=== PATIENT | female | born 1940 | race Caucasian/White ===

== ENCOUNTER → 2016-11-03 | Outpatient (CLI) | payer BC ==
[~2016-11-03] MED LIST: ACET-1311 PO; ANT25 PO; ASPI81TA21 PO; BISA10SU3 PR; BND25X PO; CHOL1000 PO; CHOL100010 PO; CYCL0.052 OP; DOCU-94 PO; DONE1TAB11 PO; GLUCTAB7 PO; HYDR1OIN EXT; LEVO75TA25 PO; LEVO75TA5 PO; MECL1TAB42 PO; MOML PO; MULT-513 PO; ROSU5TAB PO; RXC5 PO; ZNTT/150 PO
== END | disposition home or self-care (01) ==
LOC: C.LABSPEC 17:36
PROVIDERS: ATTEND Internal Medicine
DX: R39.9 Unspecified symptoms and signs involving the genitourinary system (principal)

== ENCOUNTER → 2016-11-29 | Outpatient (CLI) | payer BC ==
[~2016-11-29] MED LIST changes: -BND25X PO; +DIPH25CA50 PO
[2016-11-29 13:46] LABS: ALT/SGPT 36 U/L (12-78); AST/SGOT 20 U/L (15-37); BLOOD UREA NITROGEN 19 mg/dl (7-18); CREATININE 0.89 mg/dl (0.60-1.20)
[2016-11-29 14:03] LABS: CHOLESTEROL/HDL RATIO 2.2
== END | disposition home or self-care (01) ==
LOC: C.LABBFT 09:22
PROVIDERS: ATTEND Psychiatry & Neurology Neurology
DX: E78.5 Hyperlipidemia, unspecified (principal); R41.3 Other amnesia; R39.9 Unspecified symptoms and signs involving the genitourinary system; R48.2 Apraxia

== ENCOUNTER → 2016-12-01 | Outpatient (CLI) | payer BC ==
[~2016-12-01] MED LIST changes: +GADAVIST IV PRN
--- NOTE | 2016-12-01 14:53 | DIAGNOSTIC IMAGING REPORT ---
MRI OF THE BRAIN WITHOUT AND WITH IV CONTRAST CLINICAL HISTORY: Memory loss. Gait disturbance. Urinary dysfunction. COMPARISON STUDY: MRI of the brain March 10, 2016. TECHNIQUE: Utilizing a 1.5 Kelly magnet and dedicated coil, multiplanar, multiecho imaging of the brain was performed pre and postcontrast administration. IV administration of 8.5 mL of Gadavist contrast was uneventful. FINDINGS: There are no areas of restricted diffusion. No acute intracranial hemorrhage, midline shift or mass effect is present. Ventricular system is stable. Basilar cisterns are patent. There are no extra-axial collections. Flow-voids for the major intracranial vessels are present. There are no intracranial masses or pathologic enhancement. Moderate atrophy is noted. Moderate white matter T2 hyperintensity suggest small vessel disease. The appearance of the brain is unchanged since MRI of March 10, 2016. Calvarial signal is maintained. Orbits and sinuses are unremarkable. IMPRESSION: 1. No acute intracranial findings. 2. No change in appearance of the brain since exam of March 10, 2016. 3. Moderate atrophy and small vessel disease. 4. No intracranial mass. Electronically signed by: Dewey Wagner M.D. 12/01/2016 2:51 PM Dictated Date/Time: 12/01/2016 2:44 PM
== END | disposition home or self-care (01) ==
LOC: C.MRI 13:24
PROVIDERS: ATTEND Psychiatry & Neurology Neurology
DX: R41.3 Other amnesia (principal); R48.2 Apraxia; R39.9 Unspecified symptoms and signs involving the genitourinary system

== ENCOUNTER → 2017-01-12 | Outpatient (CLI) | payer BC ==
[~2017-01-12] MED LIST changes: -GADAVIST IV PRN
[2017-01-12 19:16] LABS: URINE APPEARANCE CLEAR (CLEAR); URINE BILIRUBIN NEG (NEG); URINE COLOR YELLOW; URINE NITRITE NEG (NEG); URINE SPECIFIC GRAVITY 1.007 (1.000-1.030); UROBILINOGEN NEG (NEG)
[2017-01-12 19:23] LABS: MANUAL MICROSCOPIC REQUIRED? NO; REVIEW REQ? NO
== END | disposition home or self-care (01) ==
LOC: C.LABSPEC 17:25
PROVIDERS: ATTEND Physician Assistant Medical
DX: R39.9 Unspecified symptoms and signs involving the genitourinary system (principal)

== ENCOUNTER 2017-01-26 00:04 | Observation (INO) | payer BC ==
[~2017-01-26] VITALS: Ht 160 cm; Wt 83.1 kg
[~2017-01-26 00:04] MED LIST changes: -ACET-1311 PO; -BISA10SU3 PR; -CHOL1000 PO; -CYCL0.052 OP; -DIPH25CA50 PO; -DONE1TAB11 PO; -HYDR1OIN EXT; -LEVO75TA5 PO; -MECL1TAB42 PO; -MOML PO; -ROSU5TAB PO; -RXC5 PO
--- NOTE | 2017-01-26 00:12 | EMERGENCY ROOM VISIT NOTE ---
History Report prepared by Leland: Mark Tovar Under the Supervision of: Dr. Prasad Tobias D.O. First contact with patient: 00:03 Chief Complaint: FALL Stated Complaint: FALL History of Present Illness The patient is a 76 year old female who presents to the Emergency Room via EMS with complaints of a fall that occurred [employer]LECT[employer]UMENT [employer]. Per the patient, she has been having trouble with her left leg over the past couple of days. She states that she does not really know why or how she fell, but that her leg has been giving her issues. She did not lose consciousness, but she did hit her head. She takes Aspirin regularly. She denies any weakness. She has a past medical history of cataract surgeries. 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 Review of Systems See HPI for pertinent positives and negatives. A total of ten systems were reviewed and were otherwise negative. Past Medical & Surgical Medical Problems: (1) Ambulatory dysfunction (2) Chest pain (3) Dizziness (4) Esophageal Reflux (5) Long-Term (Current) Use Of Aspirin Family History Omitted secondary to age. Social History Smoking Status: Never Smoker Smokeless Tobacco Use: No Drug Use: none Occupation Status: retired Current/Historical Medications Scheduled Aspirin Enteric Coated (Ecotrin Or Generic), 81 MG PO DAILY Cholecalciferol (Vitamin D3), 1,000 INTER.UNIT PO DAILY Donepezil Hydrochloride (Donepezil Hcl), 10 MG PO DAILY Levothyroxine Sodium (Levothyroxine Sodium), 75 MCG PO DAILY Rosuvastatin Calcium (Crestor), 5 MG PO HS Scheduled PRN Meclizine Hcl (Meclizine Hcl), 25 MG PO TID PRN for Dizziness or Vertigo Allergies Coded Allergies: No Known Allergies (Unverified , 01/26/17) Physical Exam Vital Signs Date Time Temp Pulse Resp B/P (MAP) Pulse Ox O2 Delivery O2 Flow Rate FiO2 01/26/17 00:07 36.8 98 18 124/76 94 Room Air Physical Exam GENERAL: Awake, alert, well-appearing, in no distress HENT: Normocephalic, atraumatic. Oropharynx unremarkable. EYES: Normal conjunctiva. Sclera non-icteric. NECK: Supple. No nuchal rigidity. FROM. No JVD. RESPIRATORY: Clear to auscultation. CARDIAC: Regular rate, normal rhythm. Extremities warm and well perfused. Pulses equal. ABDOMEN: Soft, non-distended. No tenderness to palpation. No rebound or guarding. No masses. RECTAL: Deferred. MUSCULOSKELETAL: Chest examination reveals no tenderness. The back is symmetrical on inspection without obvious abnormality. There is no CVA tenderness to palpation. No joint edema. LOWER EXTREMITIES: Left lower extremity has an obvious ecchymosis at the left knee cap which is in different stages of healing. There is tenderness to the area. N/V distally. NEURO: Normal sensorium. No sensory or motor deficits noted. GCS 15. SKIN: No rash or jaundice noted. Medical Decision & Procedures ER Provider Diagnostic Interpretation: X ray results as stated below per my interpretation and radiologist interpretation. Other radiology results as stated below per my review and radiologist interpretation 3 VIEW LEFT KNEE: Soft tissue swelling present. Knee replacement present which is intact. No obvious fracture. Per my interpretation. CT HEAD: Compared to CT head 03/10/2016 No ICH, mass effect or edema. No skull fracture. CT C SPINE: No evidence of acute fracture or subluxation. Radiologist: Loureds Burch M.D. Laboratory Results Test 01/26/17 01:37 01/26/17 02:24 01/26/17 02:25 01/26/17 03:09 Bedside Glucose 118 mg/dl (70-90) Laboratory results reviewed by me ED Course 0003: The patient was evaluated in room B7. A complete history and physical exam was performed. 0130: I reevaluated the patient. Discussed results and discharge instructions: She verbalized understanding and agreement. The patient is ready for discharge. 0140: I was told by the patient's family that the patient has been having increased difficult walking and lives by herself. They would like her to stay to be evaluated further to be placed in a nursing facility. 0230: Upon reexamination, the patient was resting. I discussed the test results and treatment plan with her. The patient will be evaluated by Dr. John KIRBY , for further management. Medical Decision Differential diagnoses include but are not limited to; sprain, strain, contusion , fracture, intracranial hemorrhage, and concussion. Medication Reconciliation: I attest that I have personally reviewed the patient' s current medication list. Blood pressure screening: Patient was found to have normal blood pressure on screening and does not require follow-up. Patient re-eval at 1:15 AM. Patient has a GCS of 15. Patient's CAT scans are negative and x-ray as interpreted by me was negative for fracture. I discussed the findings with the patient at bedside. Spoke with family at bedside, they would like the patient to be admitted for her frequent falls impossibility of getting admitted to a senior care. I discussed the evaluation with the [facility] hospitalist for admission Consults Time Called: 224 Consulting Physician: Dr. John FU Returned Call: [phone] She will be evaluating the patient for further management. Impression Primary Impression: Closed head injury Additional Impression: Contusion of left knee Scribe Attestation The scribe's documentation has been prepared under my direction and personally reviewed by me in its entirety. I confirm that the note above accurately reflects all work, treatment, procedures, and medical decision making performed by me. Departure Information Dispostion Being Evaluated By Hospitalist Referrals No Doctor Assigned Forms HOME CARE DOCUMENTATION FORM, IMPORTANT VISIT INFORMATION Patient Instructions Bruises Contusions, ED Head Injury Closed, My [facility] Problem Qualifiers
[2017-01-26] MEDS ORDERED: CHOL1000 PO (00:24)
[2017-01-26] MEDS ORDERED: LEVO75TA5 PO (00:26)
[2017-01-26] MEDS ORDERED: MECL1TAB42 PO (00:27)
[2017-01-26] MEDS ORDERED: ROSU5TAB PO (00:28)
[2017-01-26] MEDS ORDERED: DONE1TAB11 PO (00:29)
[2017-01-26] MEDS ORDERED: MECLIZINE HCL 25 MG TAB PO PRN (03:15)
[2017-01-26] MEDS ORDERED: ONDANSETRON INJ 2 MG/ML 2 ML VIAL IV PRN (03:15)
[2017-01-26] MEDS ORDERED: ACETAMINOPHEN 325 MG TAB PO PRN (03:15)
[2017-01-26] MEDS ORDERED: POLYETHYLENE (MIRALAX) 17 GM PACK PO PRN (03:15)
[2017-01-26 03:25] LABS: BASO % 0.1 %; BASO ABS # 0.02 K/uL (0-0.2); COMPLETE YES; EOS % 0.1 %; HEMATOCRIT 47.4 % (37-47); IG% 0.3 %; LYMPH % 7.7 %; LYMPH ABS # 1.16 K/uL (1.2-3.4); MEAN CELL VOLUME 94.6 fL (80-100); MEAN CORPUSCULAR HEMOGLOBIN 30.9 pg (25-34); MEAN CORPUSCULAR HGB CONC 32.7 g/dl (32-36); MEAN PLATELET VOLUME 9.8 fL (7.4-10.4); MONO % 9.3 %; NEUT % 82.5 %; PLATELET COUNT 381 K/uL (130-400); RED BLOOD COUNT 5.01 M/uL (4.2-5.4); WHITE BLOOD COUNT 15.02 K/uL (4.8-10.8)
[2017-01-26 03:28] LABS: CALCIUM 8.9 mg/dl (8.5-10.1); POTASSIUM 4.2 mmol/L (3.5-5.1)
[2017-01-26 03:31] LABS: MANUAL MICROSCOPIC REQUIRED? NO; REVIEW REQ? YES; URINE APPEARANCE TURBID (CLEAR); URINE BILIRUBIN NEG (NEG); URINE COLOR DK YELLOW; URINE EPITHELIAL CELL AUTO >30 /lpf (0-5); URINE NITRITE NEG (NEG); URINE SPECIFIC GRAVITY 1.036 (1.000-1.030); UROBILINOGEN NEG (NEG)
[2017-01-26 03:33] LABS: CREATININE 1.2 mg/dl (0.60-1.20)
[2017-01-26 03:34] LABS: THYROID STIMULATING HORMONE 1.59 uIu/ml (0.300-4.500)
--- NOTE | 2017-01-26 03:47 | History and Physical ---
History & Physical Date & Time of Service: Jan 26, 2017 at 03:31 Chief Complaint: FALL Primary Care Physician: Yousif Arana M.D. History of Present Illness Source: patient, family, clinic records This is 76 yo f that is presenting to us after a mechanical fall at home this evening. She was walking with her walker when her "feet couldn't keep up" and she fell forward. Her wrist hit first then her knee and her forehead. She had no dizziness/ chest pain/ shortness of breath prior to the fall. This is her fourth fall in the past month and she states "it is because I shuffle and can't get my feet moving." All imaging done in ED was WNL however because of her frequent falls the family would like her admitted for further evaluation and possible placement. She has been evaluated for worsening memory and gait dysfunction by Dr Arana and Dr Nguyen. On her last visit with Dr Nguyen an MRI was done and did not reveal any significant findings. She was started on Donepezil as there was suspicion that the patient's symptoms such as staring and gait dysfunction could be from dementia. When we asked the patient about when the MRI was done she stated that it was 4-6 weeks prior( which would coincide with the MRI done in November). The daughter shook her head and said "that couldn't be true she hasn' t left the house at all." Daughter confirms a shuffling gait. Past Medical/Surgical History Hypothyroidism Dementia, mild Hyperlipidemia left TKA Family History Diabetes mellitus Heart disease Social History Smoking Status: Never Smoker Smokeless Tobacco Use: No Alcohol Use: none Drug Use: none Marital Status: Housing status: lives alone Occupational Status: retired Immunizations History of Influenza Vaccine: Yes History of Tetanus Vaccine?: Yes History of Pneumococcal: No History of Hepatitis B Vaccine: No Multi-Drug Resistant Organisms History of MDRO: No Allergies Coded Allergies: No Known Allergies (Unverified , 01/26/17) Home Medications Scheduled Aspirin Enteric Coated (Ecotrin Or Generic), 81 MG PO DAILY Cholecalciferol (Vitamin D3), 1,000 INTER.UNIT PO DAILY Donepezil Hydrochloride (Donepezil Hcl), 10 MG PO DAILY Levothyroxine Sodium (Levothyroxine Sodium), 75 MCG PO DAILY Rosuvastatin Calcium (Crestor), 5 MG PO HS Scheduled PRN Meclizine Hcl (Meclizine Hcl), 25 MG PO TID PRN for Dizziness or Vertigo Review of Systems Constitutional: No fever, No chills Eyes: No worsening of vision ENT: No hearing loss Respiratory: No cough, No sputum, No wheezing, No shortness of breath, No dyspnea on exertion, No dyspnea at rest Cardiovascular: No chest pain Abdomen: No pain, No nausea, No vomiting, No diarrhea, No constipation Musculoskeletal: + problem reported (right UE tremor), No joint pain, No muscle pain Genitourinary - Female: No dysuria, No hematuria Neurologic: + memory loss, + weakness, + balance problems, No numbness/tingling Psychiatric: No depression symptoms Endocrine: No fatigue Integumentary: No rash Physical Exam Vital Signs Date Time Temp Pulse Resp B/P (MAP) Pulse Ox O2 Delivery O2 Flow Rate FiO2 01/26/17 00:07 36.8 98 18 124/76 94 Room Air General Appearance: no apparent distress, + pertinent finding (masked facies, does stare off during the interview) Head: normocephalic, atraumatic Eyes: normal inspection ENT: normal ENT inspection Neck: supple Respiratory/Chest: normal breath sounds, no respiratory distress, no accessory muscle use Cardiovascular: regular rate, rhythm, no murmur Abdomen/GI: normal bowel sounds, non tender, soft Back: normal inspection Extremities/Musculoskelatal: normal inspection, + pertinent finding (a right UE resting tremor is noted , bilat cogwheel rigidity R>L) 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, alert, oriented x 3, + pertinent finding (coorindation intact however finger to nose test is slow miving) Skin: normal color, warm/dry, no rash Diagnostics Laboratory Results Results Past 24 Hours Test 01/26/17 01:37 01/26/17 02:24 01/26/17 02:25 01/26/17 02:55 Range/Units Bedside Glucose 118 70-90 mg/dl White Blood Count 15.02 4.8-10.8 K/uL Red Blood Count 5.01 4.2-5.4 M/uL Hemoglobin 15.5 12.0-16.0 g/dL Hematocrit 47.4 37-47 % Mean Corpuscular Volume 94.6 80-100 fL Mean Corpuscular Hemoglobin 30.9 25-34 pg Mean Corpuscular Hemoglobin Concent 32.7 32-36 g/dl Platelet Count 381 130-400 K/uL Mean Platelet Volume 9.8 7.4-10.4 fL Neutrophils (%) (Auto) 82.5 % Lymphocytes (%) (Auto) 7.7 % Monocytes (%) (Auto) 9.3 % Eosinophils (%) (Auto) 0.1 % Basophils (%) (Auto) 0.1 % Neutrophils # (Auto) 12.38 1.4-6.5 K/uL Lymphocytes # (Auto) 1.16 1.2-3.4 K/uL Monocytes # (Auto) 1.39 0.11-0.59 K/uL Eosinophils # (Auto) 0.02 0-0.5 K/uL Basophils # (Auto) 0.02 0-0.2 K/uL RDW Standard Deviation 48.1 36.4-46.3 fL RDW Coefficient of Variation 13.9 11.5-14.5 % Immature Granulocyte % (Auto) 0.3 % Immature Granulocyte # (Auto) 0.05 0.00-0.02 K/uL Test 01/26/17 03:09 Range/Units Microbiology Results 01/26/17 Urine Culture, Received Pending Diagnostic Radiology CT head no acute bleed Impression Assessment and Plan This is a 76 yo f that is presenting to us with ambulatory dysfunction and requiring further evaluation Ambulatory dysfunction; parkinsons? (Phys exam concerning for this), Myasthenia gravis? Peripheral neuropathy? - med surg admission - TSH - Vit B 12 and folate - ACHr Ab to r/o MG - if WNL consider a trial of Sinemet in the outpt setting - PT/OT Hypothyroidism - continue current dose of levothyroxine - TSH as above Hyperlipidemia - continue rosuvastatin Mild Dementia - continue donepezil DVT Prophylaxis Heparin DNR Level of Care Med/Surg Resuscitation Status DO NOT RESUSCITATE VTE Prophylaxis VTE Risk Assessment Done? Y/N: Yes Risk Level: Moderate Given or contraindicated: Unfractionated heparin SQ Social Service Consult None Apply Note Total Time: Critical Care 30 - 74 minutes Additional Copies To Yousif Arana M.D. Assessment and Plan Attending Addendum: I have physically seen and examined this patient, have directed their medical care, have supervised the medical residents activities, and agree with the H&P as noted above, with the following changes: NONE
[2017-01-26] MEDS ORDERED: IV FLUIDS COMPLETED PRN (04:00)
[2017-01-26 04:57] VITALS: BP 102/67; PULSE 82; TEMP 36.5; O2SAT 94; Ht 160 cm; Wt 83.1 kg
[2017-01-26] MEDS: LEVOTHYROXINE 75 MCG TAB PO SCH (05:28)
--- NOTE | 2017-01-26 06:55 | DIAGNOSTIC IMAGING REPORT ---
LEFT KNEE 3 VIEWS CLINICAL HISTORY: Left knee pain status post fall. COMPARISON: Left knee radiographs October 25, 2012. FINDINGS: Alignment of the total left knee arthroplasty is anatomic. There is no periprosthetic fracture or joint effusion. There is prepatellar soft tissue swelling. IMPRESSION: 1. Status post total left knee arthroplasty. Hardware intact with no periprosthetic fracture or joint effusion. 2. Moderate prepatellar soft tissue swelling. Electronically signed by: Dewey Wagner M.D. 01/26/2017 6:54 AM Dictated Date/Time: 01/26/2017 6:53 AM
--- NOTE | 2017-01-26 07:05 | DIAGNOSTIC IMAGING REPORT ---
CT OF THE CERVICAL SPINE WITHOUT CONTRAST CLINICAL HISTORY: Neck pain following fall. COMPARISON STUDY: No previous studies for comparison. TECHNIQUE: Helical axial images of the cervical spine were obtained without IV contrast. Sagittal and coronal reconstructions were viewed. FINDINGS: There is straightening of the normal cervical lordosis. Craniocervical junction is intact. There is no acute fracture. There is no prevertebral edema. Moderate multilevel degenerative disc disease and severe multilevel facet arthrosis is present. IMPRESSION: 1. No acute cervical spine fracture or subluxation. 2. Moderate multilevel degenerative disc disease and severe multilevel facet arthrosis. Electronically signed by: Dewey Wagner M.D. 01/26/2017 7:03 AM Dictated Date/Time: 01/26/2017 7:01 AM
--- NOTE | 2017-01-26 07:10 | DIAGNOSTIC IMAGING REPORT ---
CT SCAN OF THE BRAIN WITHOUT IV CONTRAST CLINICAL HISTORY: Headache. Fall. COMPARISON STUDY: CT of the brain dated 03/10/2016. TECHNIQUE: Unenhanced axial CT scan of the brain is performed from the vertex to the skull base. FINDINGS: Brain parenchyma: There are age-related involutional changes noting moderate patchy subcortical and periventricular microangiopathic change. There is no hemorrhage, mass effect, or evidence of acute territorial ischemia by CT criteria. Yoo-white matter is preserved. No extra-axial fluid collection is seen. Ventricles, sulci, cisterns: Prominent secondary to involutional change. Intracranial vasculature: There is mild atherosclerotic calcification of the cavernous carotid arteries. Calvarium: The skeletal structures are osteopenic. No depressed calvarial fracture is seen. Sinuses and mastoids: The visualized paranasal sinuses are clear. The mastoid air cells are well pneumatized. Orbits: The bony orbits are grossly intact. There are bilateral ocular lens implants. IMPRESSION: There is no hemorrhage, mass effect, or evidence of acute territorial ischemia by CT criteria. Electronically signed by: Ovidio Elizalde M.D. 01/26/2017 7:09 AM Dictated Date/Time: 01/26/2017 7:07 AM
[2017-01-26 07:21] LABS: PROTHROMBIN TIME (PATIENT) 10.4 SECONDS (9.0-12.0)
[2017-01-26 07:35] VITALS: BP 101/66; PULSE 85; TEMP 36.7; O2SAT 96
[2017-01-26] MEDS: ASPIRIN 81 MG ECTAB PO SCH (07:53)
[2017-01-26] MEDS: CHOLECALCIFEROL 1000 INTER.UNIT TAB PO SCH (07:53)
[2017-01-26] MEDS: DONEPEZIL HCL 5 MG TAB PO SCH (07:53)
[2017-01-26] MEDS: HEPARIN SOD 5000 UNIT/0.5 ML CARP SQ SCH ×2 (07:57→21:24)
[2017-01-26] MEDS ORDERED: ARTIFICIAL TEARS OP SOLN OP PRN ×2 (13:30)
--- NOTE | 2017-01-26 13:47 | Hospitalist Progress Note ---
Hospitalist Progress Note Date of Service Jan 26, 2017. Subjective Pt evaluation today including: conversation w/ patient, physical exam, chart review, lab review, review of studies, review of inpatient medication list Patient seen and evaluated. Was admitted overnight for frequent falls. She denies pain at this time. Only complaint is of dry eyes. States she takes prescription drops at home. Cannot find on med rec or in outpatient records Will try to talk with family but until then will use artificial tears. Dr. Geronimo's outpatient note reviewed - question of Subcortical gait and cognitive dysfunction vs Lewy Body Dementia...MRI with senescent changes no acute findings in November -- Recommended against Sinemet as risk may outweigh benefits Patient does report a progressive difficulty ambulating but denies a drastic change. States her L side has always been weaker than her R. No focal deficits appreciated. Constitutional: No fever, No chills Eyes: + problem reported (dry eyes) ENT: No nasal symptoms, No sore throat, No trouble swallowing Respiratory: No shortness of breath Cardiovascular: No chest pain, No palpitations Abdomen: No pain, No nausea, No vomiting, No diarrhea, No constipation Musculoskeletal: No swelling Female : No dysuria Neurologic: + memory loss Objective Vital Signs Date Time Temp Pulse Resp B/P (MAP) Pulse Ox O2 Delivery O2 Flow Rate FiO2 01/26/17 08:00 Room Air 01/26/17 07:35 36.7 85 18 101/66 (78) 96 Room Air 01/26/17 04:57 36.5 82 16 102/67 94 Room Air 01/26/17 04:13 36.8 85 16 115/54 94 01/26/17 04:04 85 16 115/54 94 Room Air 01/26/17 00:07 36.8 98 18 124/76 94 Room Air Physical Exam General Appearance: no apparent distress, + pertinent finding (mask-like face) Eyes: sclerae normal ENT: hearing grossly normal Neck: supple, no JVD, trachea midline Respiratory/Chest: lungs clear, normal breath sounds, no respiratory distress, no accessory muscle use Cardiovascular: regular rate, rhythm, no gallop, no murmur Abdomen: normal bowel sounds, non tender, soft Extremities: no pedal edema, no calf tenderness, + pertinent finding ( ecchymosis of L knee) Neurologic/Psychiatric: no motor/sensory deficits, alert, oriented x 3, + pertinent finding (could not appreciate cogwheeling on examination) Skin: normal color, warm/dry Laboratory Results Last 24 Hours Test 01/26/17 02:24 01/26/17 02:25 01/26/17 02:55 01/26/17 05:17 Bedside Glucose 118 mg/dl White Blood Count 15.02 K/uL Red Blood Count 5.01 M/uL Hemoglobin 15.5 g/dL Hematocrit 47.4 % Mean Corpuscular Volume 94.6 fL Mean Corpuscular Hemoglobin 30.9 pg Mean Corpuscular Hemoglobin Concent 32.7 g/dl Platelet Count 381 K/uL Mean Platelet Volume 9.8 fL Neutrophils (%) (Auto) 82.5 % Lymphocytes (%) (Auto) 7.7 % Monocytes (%) (Auto) 9.3 % Eosinophils (%) (Auto) 0.1 % Basophils (%) (Auto) 0.1 % Neutrophils # (Auto) 12.38 K/uL Lymphocytes # (Auto) 1.16 K/uL Monocytes # (Auto) 1.39 K/uL Eosinophils # (Auto) 0.02 K/uL Basophils # (Auto) 0.02 K/uL RDW Standard Deviation 48.1 fL RDW Coefficient of Variation 13.9 % Immature Granulocyte % (Auto) 0.3 % Immature Granulocyte # (Auto) 0.05 K/uL Urine Color DK YELLOW Urine Appearance TURBID Urine pH 5.0 Urine Specific [place] 1.036 Urine Protein TRACE Urine Glucose (UA) NEG Urine Ketones TRACE Urine Occult Blood NEG Urine Nitrite NEG Urine Bilirubin NEG Urine Urobilinogen NEG Urine Leukocyte Esterase TRACE Urine WBC (Auto) 1-5 /hpf Urine RBC (Auto) 0-4 /hpf Urine Hyaline Casts (Auto) 10-30 /lpf Urine Epithelial Cells (Auto) >30 /lpf Urine Bacteria (Auto) NEG Urine Renal Epithelial Cells /lpf Urine Crystals CALCIUM OXALATE Urine Pathogenic Casts /lpf Sodium Level 143 mmol/L Potassium Level 4.2 mmol/L Chloride Level 108 mmol/L Carbon Dioxide Level 27 mmol/L Anion Gap 8.0 mmol/L Blood Urea Nitrogen 25 mg/dl Creatinine 1.20 mg/dl Est Creatinine Clear Calc Drug Dose 39.6 ml/min Estimated GFR () 50.1 Estimated GFR (Non- 43.3 BUN/Creatinine Ratio 21.0 Random Glucose 127 mg/dl Calcium Level 8.9 mg/dl Total Bilirubin 0.6 mg/dl Direct Bilirubin 0.1 mg/dl Aspartate Amino Transf (AST/SGOT) 37 U/L Alanine Aminotransferase (ALT/SGPT) 36 U/L Alkaline Phosphatase 92 U/L Total Protein 7.7 gm/dl Albumin 3.8 gm/dl Globulin 3.9 gm/dl Albumin/Globulin Ratio 1.0 Thyroid Stimulating Hormone (TSH) 1.590 uIu/ml Vitamin B12 Level 363 pg/mL Folate 17.36 ng/mL Test 01/26/17 06:23 01/26/17 07:46 Prothrombin Time 10.4 SECONDS Prothromb Time International Ratio 1.0 Bedside Glucose 126 mg/dl Assessment and Plan This is a 76 yo F that is presenting with ambulatory dysfunction and requiring further evaluation Ambulatory Dysfunction: - Follows with Dr Geronimo - question of Lewy Body Dementia vs Subcortical Gait & Cognitive Dysfunction -- Had outpatient MRI in November revealing only atrophy and small vessel disease -- Per [employer] - would avoid Sinement as risks/side effects may outweight benefits - TSH, B12, and folate - WNL - Acetylcholine testing - R/O MG pending - UCx pending - R/O sources of infection however patient reporting this has been a slow progression instead of a sudden change in ambulation status - PT/OT evaluations Hypothyroidism: Compensated - Synthroid 75 mcg daily Hyperlipidemia: - Rosuvastatin 5 mg HS Dementia: - Donepezil 10 mg daily DVT Prophylaxis: Heparin 5000 units SC Q12H Code Status: DO NOT RESUSCITATE Disposition: Awaiting PT/OT evaluations Continued [facility] stay due to: ambulation difficulties Discharge planning: uncertain
[2017-01-26 14:55] VITALS: BP 100/66; PULSE 83; TEMP 37; O2SAT 93
[2017-01-26] MEDS ORDERED: NURSING VERBAL MED ORDER ONE (20:00)
[2017-01-26 20:14] VITALS: BP 117/75; PULSE 88; TEMP 36.6; O2SAT 94
[2017-01-26] MEDS ORDERED: ROSUVASTATIN CALCIUM 10 MG TAB PO SCH (21:00)
[2017-01-27] MEDS ORDERED: CYCLOSPORINE SCH
[2017-01-27 00:12] VITALS: BP 90/57; PULSE 84; TEMP 36.6; O2SAT 95
[2017-01-27] MEDS: LEVOTHYROXINE 75 MCG TAB PO SCH (05:51)
[2017-01-27 06:53] LABS: HEMATOCRIT 43.3 % (37-47); MEAN CELL VOLUME 95.8 fL (80-100); MEAN CORPUSCULAR HEMOGLOBIN 32.1 pg (25-34); MEAN CORPUSCULAR HGB CONC 33.5 g/dl (32-36); PLATELET COUNT 305 K/uL (130-400); RED BLOOD COUNT 4.52 M/uL (4.2-5.4); WHITE BLOOD COUNT 10.27 K/uL (4.8-10.8)
[2017-01-27 07:27] LABS: BUN/CREATININE RATIO 19.1 (10-20); CALCIUM 8.6 mg/dl (8.5-10.1); CREATININE 0.79 mg/dl (0.60-1.20); POTASSIUM 3.8 mmol/L (3.5-5.1)
[2017-01-27] MEDS: ASPIRIN 81 MG ECTAB PO SCH (07:47)
[2017-01-27] MEDS: DONEPEZIL HCL 5 MG TAB PO SCH (07:47)
[2017-01-27] MEDS: CHOLECALCIFEROL 1000 INTER.UNIT TAB PO SCH (07:48)
[2017-01-27] MEDS: HEPARIN SOD 5000 UNIT/0.5 ML CARP SQ SCH (07:52)
[2017-01-27 08:03] VITALS: BP 113/67; PULSE 75; TEMP 36.4; O2SAT 95
[2017-01-27] MEDS ORDERED: [UNRECOGNIZED DRUG - OTHER] OPB SCH (09:00)
--- NOTE | 2017-01-27 10:15 | Hospitalist Progress Note ---
Hospitalist Progress Note Date of Service Jan 27, 2017. Subjective Pt evaluation today including: conversation w/ patient, physical exam, chart review, lab review, review of studies, review of inpatient medication list Patient seen and evaluated. No acute events overnight. She is alert and oriented x 3. Has had limited ability to walk and will require placement. Notes overnight revealed some episodes of urinary incontinence. She verbalizes no new complaints today. Constitutional: No fever, No chills Eyes: No worsening of vision ENT: No nasal symptoms, No sore throat Respiratory: No cough, No shortness of breath Cardiovascular: No chest pain Abdomen: No pain, No nausea, No vomiting, No diarrhea, No constipation Musculoskeletal: No swelling, No calf pain Female : + incontinence (overnight), No dysuria Medications Current Inpatient Medications Medications (Trade) Dose Ordered Sig/Merary Route Start Time Stop Time Status Last Admin Dose Admin Acetaminophen (Tylenol Tab) 650 mg Q4H PRN PO 01/26/17 03:15 02/25/17 03:14 Polyethylene (Miralax Powder Packet) 17 gm DAILY PRN PO 01/26/17 03:15 02/25/17 03:14 Ondansetron HCl (Zofran Inj) 4 mg Q6H PRN IV 01/26/17 03:15 02/25/17 03:14 Heparin Sodium (Porcine) (Heparin Sq 5000 Unit/0.5ml) 5,000 unit Q12H SQ 01/26/17 09:00 02/25/17 08:59 01/27/17 07:52 5,000 UNIT Aspirin (Ecotrin Tab) 81 mg DAILY PO 01/26/17 09:00 02/25/17 08:59 01/27/17 07:47 81 MG Cholecalciferol (Vitamin D Tab) 1,000 inter.unit DAILY PO 01/26/17 09:00 02/25/17 08:59 01/27/17 07:48 1,000 INTER.UNIT Donepezil HCl (Aricept Tab) 10 mg DAILY PO 01/26/17 09:00 02/25/17 08:59 01/27/17 07:47 10 MG Levothyroxine Sodium (Synthroid Tab) 75 mcg DAILYBB PO 01/26/17 06:30 02/25/17 06:59 01/27/17 05:51 75 MCG Meclizine HCl (Antivert Tab) 25 mg TID PRN PO 01/26/17 03:15 02/25/17 03:14 Rosuvastatin Calcium (Crestor Tab) 5 mg HS PO 01/26/17 21:00 02/25/17 20:59 01/26/17 21:17 5 MG Miscellaneous (Iv Fluids Completed) 1 ea PRN PRN N/A 01/26/17 04:00 01/26/18 03:59 Artificial Tears (Artificial Tears) 2 drops Q2H PRN OP 01/26/17 13:30 02/25/17 13:29 Cyclosporine (Restasis) 1 drops BID OPB 01/27/17 09:00 02/26/17 08:59 01/27/17 08:18 1 DROPS Objective Vital Signs Date Time Temp Pulse Resp B/P (MAP) Pulse Ox O2 Delivery O2 Flow Rate FiO2 01/27/17 08:03 36.4 75 16 113/67 (82) 95 01/27/17 00:12 36.6 84 20 90/57 (68) 95 Room Air 01/27/17 00:05 Room Air 01/26/17 20:14 36.6 88 20 117/75 (89) 94 Room Air 01/26/17 20:05 Room Air 01/26/17 16:13 Room Air 01/26/17 14:55 37.0 83 20 100/66 (77) 93 Room Air Physical Exam General Appearance: WD/WN, no apparent distress, + pertinent finding (mask- like face) Eyes: sclerae normal ENT: pharynx normal Neck: supple, no JVD, trachea midline Respiratory/Chest: lungs clear, normal breath sounds, no respiratory distress, no accessory muscle use Cardiovascular: regular rate, rhythm, no gallop, no murmur Abdomen: normal bowel sounds, non tender, soft Extremities: no pedal edema, no calf tenderness, + pertinent finding (mildly contractured R foot) Neurologic/Psychiatric: alert, oriented x 3, + pertinent finding (mild cogwheeling bilat upper extremities) Skin: normal color, warm/dry Laboratory Results Last 24 Hours Test 01/27/17 06:15 White Blood Count 10.27 K/uL Red Blood Count 4.52 M/uL Hemoglobin 14.5 g/dL Hematocrit 43.3 % Mean Corpuscular Volume 95.8 fL Mean Corpuscular Hemoglobin 32.1 pg Mean Corpuscular Hemoglobin Concent 33.5 g/dl RDW Standard Deviation 49.6 fL RDW Coefficient of Variation 14.1 % Platelet Count 305 K/uL Mean Platelet Volume 10.0 fL Sodium Level 140 mmol/L Potassium Level 3.8 mmol/L Chloride Level 106 mmol/L Carbon Dioxide Level 26 mmol/L Anion Gap 8.0 mmol/L Blood Urea Nitrogen 15 mg/dl Creatinine 0.79 mg/dl Est Creatinine Clear Calc Drug Dose 59.9 ml/min Estimated GFR () 83.1 Estimated GFR (Non- 71.7 BUN/Creatinine Ratio 19.1 Random Glucose 99 mg/dl Calcium Level 8.6 mg/dl Assessment and Plan This is a 76 yo F that is presenting with ambulatory dysfunction and requiring further evaluation Ambulatory Dysfunction: Parkinsons? - Follows with Dr Geronimo - question of Lewy Body Dementia vs Subcortical Gait & Cognitive Dysfunction -- Had outpatient MRI in November revealing only atrophy and small vessel disease -- Per Allscripts - would avoid Sinement as risks/side effects may outweight benefits - TSH, B12, and folate - WNL - Acetylcholine testing - R/O MG pending - UCx pending - R/O sources of infection however patient reporting this has been a slow progression instead of a sudden change in ambulation status - suspicion for infection low - PT/OT evaluations Hypothyroidism: Compensated - Synthroid 75 mcg daily Hyperlipidemia: - Rosuvastatin 5 mg HS Dementia: - Donepezil 10 mg daily DVT Prophylaxis: Heparin 5000 units SC Q12H Code Status: DO NOT RESUSCITATE Disposition: Awaiting PT/OT evaluations - Referral placed for [facility] Continued [facility] stay due to: ambulation difficulties Discharge planning: [facility] facility
[2017-01-27] MEDS ORDERED: CYCL0.052 OP (12:50)
--- NOTE | 2017-01-27 12:57 | Discharge Instructions ---
Discharge Instructions Date of Service Jan 27, 2017. Admission Reason for Admission: Ambulatory Dysfunction Discharge Discharge Diagnosis / Problem: Ambulatory Dysfunction Discharge Goals Goal(s): Decrease discomfort, Improve function, Increase independence Activity Recommendations Activity Level: Assistance Required Therapies: Physical Therapy, Occupational Therapy . Additional Information Patient informed of condition: Yes Advance Directives: Yes DNR: Yes Level of Care: Skilled Communicable Disease: No Prognosis: Stable Instructions / Follow-Up Instructions / Follow-Up Ambulatory Dysfunction: Parkinsons? - Presented with mild resting tremor, shuffling gait, bradykinesia, mask-like face, mild cogwheeling of bilateral upper extremities - Follows with Dr Geronimo - question of Lewy Body Dementia vs Subcortical Gait & Cognitive Dysfunction -- Had outpatient MRI in November revealing only atrophy and small vessel disease -- Per Allscripts - would avoid Sinement as risks/side effects may outweigh benefits -- Recommend routine outpatient follow-up with neurology if necessary - TSH, B12, and folate - WNL - Acetylcholine testing - R/O Myastenia Gravis pending - UCx unremarkable - no source of infection to explain ambulatory dysfunction present - in addition patient reports this has been a progressive issue - PT/OT evaluations - patient is with lower extremity weakness and deficits with sitting and cannot ambulate safely Hypothyroidism: Compensated - Synthroid 75 mcg daily Hyperlipidemia: - Rosuvastatin 5 mg HS Mild Dementia: - Donepezil 10 mg daily Code Status: DO NOT RESUSCITATE Current Hospital Diet Patient's current hospital diet: AHA Diet (Heart Healthy), Low Sodium Diet (2gm Na) Discharge Diet Recommended Diet: AHA Diet (Heart Healthy), Low Sodium Diet (2gm Na) Pending Studies Studies pending at discharge: no Laboratory Results Lipid Panel Test 11/29/16 09:25 Range/Units Triglycerides Level 91 0-150 mg/dl Cholesterol Level 148 0-200 mg/dl HDL Cholesterol 67 mg/dl Cholesterol/HDL Ratio 2.2 LDL Cholesterol, Calculated 63 mg/dl Medical Emergencies . Who to Call and When: Medical Emergencies: If at any time you feel your situation is an emergency, please call 911 immediately. . Non-Emergent Contact Non-Emergency issues call your: Primary Care Provider Call Non-Emergent contact if: you have a fever, your pain is concerning you, you have any medication questions . . "Provider Documentation" section prepared by Lady Nunes. . Core Measure Problem Core Measures: None
--- NOTE | 2017-01-27 14:03 | Discharge Summary ---
Discharge Summary Date of Service Jan 27, 2017. Discharge Summary Admission Date: Jan 26, 2017 at 03:14 Discharge Date: Jan 27, 2017 Discharge Disposition: senior care facility ([facility]) Principal Diagnosis: Ambulatory Dysfunction Problems/Secondary Diagnoses: 1. Mild Dementia 2. Hypothyroidism 3. Hyperlipidemia 4. S/P L TKA Immunizations: Have You Had Influenza Vaccine: Yes History of Tetanus Vaccine?: Yes History of Pneumococcal: No History of Hepatitis B Vaccine: No Procedures: 1. CT SCAN OF THE BRAIN WITHOUT IV CONTRAST FINDINGS: Brain parenchyma: There are age-related involutional changes noting moderate patchy subcortical and periventricular microangiopathic change. There is no hemorrhage, mass effect, or evidence of acute territorial ischemia by CT criteria. Yoo-white matter is preserved. No extra-axial fluid collection is seen. Ventricles, sulci, cisterns: Prominent secondary to involutional change. Intracranial vasculature: There is mild atherosclerotic calcification of the cavernous carotid arteries. Calvarium: The skeletal structures are osteopenic. No depressed calvarial fracture is seen. Sinuses and mastoids: The visualized paranasal sinuses are clear. The mastoid air cells are well pneumatized. Orbits: The bony orbits are grossly intact. There are bilateral ocular lens implants. IMPRESSION: There is no hemorrhage, mass effect, or evidence of acute territorial ischemia by CT criteria. 2. CT OF THE CERVICAL SPINE WITHOUT CONTRAST FINDINGS: There is straightening of the normal cervical lordosis. Craniocervical junction is intact. There is no acute fracture. There is no prevertebral edema. Moderate multilevel degenerative disc disease and severe multilevel facet arthrosis is present. IMPRESSION: 1. No acute cervical spine fracture or subluxation. 2. Moderate multilevel degenerative disc disease and severe multilevel facet arthrosis. 3. LEFT KNEE 3 VIEWS FINDINGS: Alignment of the total left knee arthroplasty is anatomic. There is no periprosthetic fracture or joint effusion. There is prepatellar soft tissue swelling. IMPRESSION: 1. Status post total left knee arthroplasty. Hardware intact with no periprosthetic fracture or joint effusion. 2. Moderate prepatellar soft tissue swelling. Consultations: 1. PT/OT Medication Reconciliation Continued Medications: Aspirin Enteric Coated (Ecotrin Or Generic) 81 Mg Tab 81 MG PO DAILY, TAB Cholecalciferol (Vitamin D3) 1,000 Unit Tab 1000 INTER.UNIT PO DAILY for 90 Days, TAB 3 Refills Cyclosporine (Ophth) (Restasis) 0.05 % Emu 1 DROPS OP BID for 30 Days, #60 VIAL 3 Refills Donepezil Hydrochloride (Donepezil Hcl) 5 Mg Tab 10 MG PO DAILY for 90 Days, #180 TAB 3 Refills Levothyroxine Sodium (Levothyroxine Sodium) 75 Mcg Tab 75 MCG PO DAILY for 90 Days, #90 TAB 3 Refills Meclizine Hcl (Meclizine Hcl) 25 Mg Tab 25 MG PO TID PRN for Dizziness or Vertigo for 10 Days, #30 TAB Rosuvastatin Calcium (Crestor) 5 Mg Tab 5 MG PO HS, TAB Discharge Exam REVIEW OF SYSTEM: Constitutional: No fever, No chills Eyes: No worsening of vision ENT: No nasal symptoms, No sore throat Respiratory: No cough, No shortness of breath Cardiovascular: No chest pain Abdomen: No pain, No nausea, No vomiting, No diarrhea, No constipation Musculoskeletal: No swelling, No calf pain Female : + incontinence (overnight), No dysuria PHYSICAL EXAMINATION: General Appearance: WD/WN, no apparent distress, + pertinent finding (mask- like face) Eyes: sclerae normal ENT: pharynx normal Neck: supple, no JVD, trachea midline Respiratory/Chest: lungs clear, normal breath sounds, no respiratory distress, no accessory muscle use Cardiovascular: regular rate, rhythm, no gallop, no murmur Abdomen: normal bowel sounds, non tender, soft Extremities: no pedal edema, no calf tenderness, + pertinent finding (mildly contractured R foot) Neurologic/Psychiatric: alert, oriented x 3, + pertinent finding (mild cogwheeling bilat upper extremities) Skin: normal color, warm/dry Hospital Course ADMISSION: This is 76 yo f that is presenting to us after a mechanical fall at home this evening. She was walking with her walker when her "feet couldn't keep up" and she fell forward. Her wrist hit first then her knee and her forehead. She had no dizziness/ chest pain/ shortness of breath prior to the fall. This is her fourth fall in the past month and she states "it is because I shuffle and can't get my feet moving." All imaging done in ED was WNL however because of her frequent falls the family would like her admitted for further evaluation and possible placement. She has been evaluated for worsening memory and gait dysfunction by Dr Arana and Dr Nguyen. On her last visit with Dr Nguyen an MRI was done and did not reveal any significant findings. She was started on Donepezil as there was suspicion that the patient's symptoms such as staring and gait dysfunction could be from dementia. When we asked the patient about when the MRI was done she stated that it was 4-6 weeks prior( which would coincide with the MRI done in November). The daughter shook her head and said "that couldn't be true she hasn' t left the house at all." Daughter confirms a shuffling gait. HOSPITAL COURSE: Ms. Sylvester was admitted for ambulatory dysfunction with multiple mechanical falls prior to admission. She reports a progressive shuffling gait and denies lightheadedness/dizziness, SOB, palpitations, or CP prior to these falls. Imaging was unremarkable for acute injury after this most recent fall. She has been seen by Dr. Geronimo as an outpatient with outpatient imaging performed, including MRI in November. MRI was unremarkable for specific findings except for age-related atrophy and small vessel disease. Question of probable Parkinsons as patient presents with mild resting tremor, bradykinesia, shuffling gait, mild upper extremity cogwheeling, and mask-like face. Per review of Allscripts, Neurology recommends no Sinemet as the risk/adverse effects may far outweigh the benefits of implementation. No overt infection appreciated to explain presentation. TSH, B12, and folate obtained and unremarkable. She was continued on all home medications as previously prescribed. She is optimal for D/C to [facility] for rehabilitation and further recommendations pending performance there. Total Time Spent: Greater than 30 minutes This includes examination of the patient, discharge planning, medication reconciliation, and communication with other providers. Discharge Instructions Please refer to the electronic Patient Visit Report (Discharge Instructions) for additional information. Additional Copies To Yousif Arana M.D.
[2017-01-27 14:31] VITALS: BP 113/67; PULSE 75; TEMP 36.4; O2SAT 95
[2017-01-27 16:16] VITALS: BP 114/69; PULSE 84; TEMP 36.6; O2SAT 93
[2017-02-02 20:38] LABS: ACETYLCHOLINE RECEP MODULATING 2; ACETYLCHOLINE RECEPT BLOCKING <15 % inhibit (<15); RECEPTOR BINDING AB <0.30 nmol/L (<=0.30)
[2017-04-13] MEDS ORDERED: DIPH25CA50 PO (09:20)
== END 2017-01-27 16:45 ==
LOC: EDBD 00:04 → C.EDB 00:05 → C.MED 03:14 → ENRESERV 04:05
PROVIDERS: ADMIT Hospitalist; ATTEND Internal Medicine
DX: R26.9 Unspecified abnormalities of gait and mobility (principal); S80.02XA Contusion of left knee, initial encounter; S09.90XA Unspecified injury of head, initial encounter; W19.XXXA Unspecified fall, initial encounter; F03.90 Unspecified dementia, unspecified severity, without behavioral disturbance, psychotic disturbance, mood disturbance, and anxiety; E03.9 Hypothyroidism, unspecified; E78.5 Hyperlipidemia, unspecified; K21.9 Gastro-esophageal reflux disease without esophagitis; Z96.652 Presence of left artificial knee joint; Z66 Do not resuscitate; Z79.82 Long term (current) use of aspirin; Z79.899 Other long term (current) drug therapy

== ENCOUNTER 2017-04-10 18:22 | Inpatient (IN) | payer BC, OTHER ==
[~2017-04-10] VITALS: Ht 160 cm; Wt 85.0 kg
[~2017-04-10 18:22] MED LIST changes: -ANT25 PO; +CHOL1000 PO; -CHOL100010 PO; +CYCL0.052 OP; -DOCU-94 PO; +DONE1TAB11 PO; -GLUCTAB7 PO; -LEVO75TA25 PO; +LEVO75TA5 PO; +MECL1TAB42 PO; -MULT-513 PO; +ROSU5TAB PO; -ZNTT/150 PO
[2017-04-10 20:00] VITALS: BP 118/61; PULSE 66; TEMP 36.7; O2SAT 94; Ht 160 cm; Wt 85.0 kg
[2017-04-10] MEDS ORDERED: ACET-1311 PO (20:43)
[2017-04-10] MEDS ORDERED: ACETAMINOPHEN 325 MG TAB PO PRN (20:45)
[2017-04-10] MEDS ORDERED: BISA10SU3 PR (20:45)
[2017-04-10] MEDS ORDERED: ONDANSETRON INJ 2 MG/ML 2 ML VIAL IV PRN (20:45)
[2017-04-10] MEDS ORDERED: MoRPHine SULFATE 4 MG/ML 1 ML CARP\\VIAL IV PRN (20:45)
[2017-04-10] MEDS ORDERED: MOML PO (20:46)
[2017-04-10 21:10] LABS: HEMATOCRIT 44.8 % (37-47); MEAN CELL VOLUME 94.3 fL (80-100); MEAN CORPUSCULAR HEMOGLOBIN 31.2 pg (25-34); MEAN PLATELET VOLUME 9.5 fL (7.4-10.4); PLATELET COUNT 292 K/uL (130-400); RED BLOOD COUNT 4.75 M/uL (4.2-5.4); WHITE BLOOD COUNT 9.82 K/uL (4.8-10.8)
--- NOTE | 2017-04-10 21:14 | DIAGNOSTIC IMAGING REPORT ---
CHEST ONE VIEW PORTABLE CLINICAL HISTORY: Preoperative chest COMPARISON STUDY: 03/10/2016 FINDINGS: The cardiac and mediastinal contours are normal. There is no evidence of focal pulmonary consolidation. There is no evidence of failure. No pleural effusions are visualized.[ IMPRESSION: No active disease in the chest. Electronically signed by: Jayesh Patel M.D. 04/10/2017 9:13 PM Dictated Date/Time: 04/10/2017 9:12 PM
--- NOTE | 2017-04-10 21:23 | History and Physical ---
History & Physical Date & Time of Service: Apr 10, 2017 ~ 20:30 Chief Complaint: Right Trimalleolar Fracture Primary Care Physician: Dr. Lopez History of Present Illness 76 year old female who was transferred from [place] ED for evaluation of a right trimalleolar fracture. Patient is currently at [facility]. She reports that she was trying to get out of her wheelchair by herself when she tripped over the leg. She reports immediate right ankle pain. She was evaluated at [place] ED and was found to have a displaced right trimalleolar fracture. It was reduced in the ED. Case was discussed with Dr. Greer who recommended transfer to [facility] under the medicine service. Patient reports she has been feeling well recently. She denies chest pain and shortness of breath. No lightheadedness, dizziness, diaphoresis, or syncope. She reports occasional mild nausea but denies abdominal pain, vomiting, or diarrhea. No urinary symptoms. At the time of my exam, patient is resting in bed no acute distress. Past Medical/Surgical History Medical Problems: (1) Dementia Status: Chronic (2) Hypothyroidism Status: Chronic (3) Parkinson disease Status: Chronic Surgical Problems: (1) Status post total knee replacement, left Status: Chronic Family History Diabetes mellitus Heart disease Social History Smoking Status: Never Smoker Alcohol Use: none Multi-Drug Resistant Organisms History of MDRO: No Allergies Coded Allergies: No Known Allergies (Unverified , 01/26/17) Home Medications Scheduled Aspirin Enteric Coated (Ecotrin Or Generic), 81 MG PO DAILY Cholecalciferol (Vitamin D3), 1,000 INTER.UNIT PO DAILY Cyclosporine (Ophth) (Restasis), 1 DROPS OP BID Donepezil Hydrochloride (Donepezil Hcl), 10 MG PO DAILY Levothyroxine Sodium (Levothyroxine Sodium), 75 MCG PO DAILY Rosuvastatin Calcium (Crestor), 5 MG PO HS Scheduled PRN Acetaminophen (Tylenol), 325 MG PO Q6H PRN for Pain Bisacodyl (Dulcolax), 1 SUPP FL 4th AM if no BM PRN for Constipation Magnesium Hydroxide (Milk Of Magnesia), 30 ML PO 3rd PM if no BM PRN for Constipation Meclizine Hcl (Meclizine Hcl), 25 MG PO TID PRN for Dizziness or Vertigo Review of Systems ROS per HPI, all other systems reviewed and negative Physical Exam Vital Signs Date Time Temp Pulse Resp B/P (MAP) Pulse Ox O2 Delivery O2 Flow Rate FiO2 04/10/17 20:00 36.7 66 12 118/61 General Appearance: no apparent distress Head: normocephalic Eyes: normal inspection ENT: hearing grossly normal Neck: supple, no JVD Respiratory/Chest: lungs clear, normal breath sounds, no respiratory distress Cardiovascular: regular rate, rhythm, no edema, normal peripheral pulses Abdomen/GI: normal bowel sounds, non tender, soft Extremities/Musculoskelatal: + pertinent finding (right ankle wrapped, mild RLE edema noted, CSM checks intact) Neurologic/Psych: no motor/sensory deficits, alert, normal mood/affect, oriented x 3, + pertinent finding (forgetful, poor insight) Skin: normal color, warm/dry Diagnostics Laboratory Results Results Past 24 Hours Test 04/10/17 20:45 Range/Units Impression Assessment and Plan RIGHT TRIMALLEOLAR FRACTURE - admit to med/surg - ortho consult - likely to OR tomorrow for repair - mechanical fall - will check pre op EKG, CXR, and labs - if without significant abnormalities, patient can proceed to the OR as an acceptable risk - had echo 02/2016 - no valvular disease, preserved EF, grade I diastolic dysfunction DEMENTIA - continue Aricept PARKINSON'S HLD - continue statin DVT PROPHYLAXIS - SCDs due to possible surgical procedure tomorrow CODE STATUS - Patient is a DNR as per living will copy placed on chart. DISPO - In my clinical judgment this beneficiary meets acute admission criteria, established by [facility], that includes being hospitalized through two midnights. Attending addendum: S/P mechanical fall with right Trimalleolar fracture Complains of right foot pain but denies any other symptoms No CP,palpitation,SOB on usual day6 to day activities O/E No apparent distress Chest-clear to auscultate bilaterally Heart-regular,no murmur appreciated Abdomen-benign,no masses,bowel sound present Extremities-right ankle is bandaged Left-no edema Labs and Imaging studies so far is negative CXR is OK,awaiting EKG and had echo 02/2016 - no valvular disease, preserved EF, grade I diastolic dysfunction No Contraindication to proposed surgery other labs . Agree with the assessment and plan. DR Anuradha Collado VTE Prophylaxis VTE Risk Assessment Done? Y/N: Yes Risk Level: Moderate
[2017-04-10 21:28] LABS: BUN/CREATININE RATIO 30.4 (10-20); CALCIUM 9.2 mg/dl (8.5-10.1); CREATININE 0.57 mg/dl (0.60-1.20); POTASSIUM 3.8 mmol/L (3.5-5.1)
[2017-04-10] MEDS: ROSUVASTATIN CALCIUM 10 MG TAB PO SCH (21:31)
[2017-04-10] MEDS: HYDROCODONE/ACETAMOPHEN 5/325MG TAB PO PRN (21:36)
[2017-04-10 23:00] VITALS: BP 105/64; PULSE 75; TEMP 36.6; O2SAT 91
[2017-04-11] VITALS (8 sets, daily range): BP systolic 115–139; BP diastolic 49–80; PULSE 70–103; TEMP 36.4–37.4; O2SAT 92–97
[2017-04-11] MEDS: HYDROCODONE/ACETAMOPHEN 5/325MG TAB PO PRN ×2 (03:40→13:12)
[2017-04-11] MEDS: LEVOTHYROXINE 75 MCG TAB PO SCH (05:22)
[2017-04-11 06:25] LABS: HEMATOCRIT 41.1 % (37-47); MEAN CELL VOLUME 94.5 fL (80-100); MEAN CORPUSCULAR HEMOGLOBIN 32.2 pg (25-34); MEAN CORPUSCULAR HGB CONC 34.1 g/dl (32-36); MEAN PLATELET VOLUME 9.6 fL (7.4-10.4); PLATELET COUNT 301 K/uL (130-400); RED BLOOD COUNT 4.35 M/uL (4.2-5.4); WHITE BLOOD COUNT 9.05 K/uL (4.8-10.8)
[2017-04-11 06:37] LABS: PROTHROMBIN TIME (PATIENT) 10.3 SECONDS (9.0-12.0)
[2017-04-11 06:53] LABS: BUN/CREATININE RATIO 34.1 (10-20); CALCIUM 8.8 mg/dl (8.5-10.1); CREATININE 0.56 mg/dl (0.60-1.20); POTASSIUM 3.8 mmol/L (3.5-5.1)
--- NOTE | 2017-04-11 08:34 | CONSULTATION REPORT ---
DATE OF CONSULTATION: 04/11/2017 REASON FOR CONSULT: Ankle fracture, right ankle. HISTORY OF PRESENT ILLNESS: The patient is a 76-year-old white female who states that last evening, she had gotten up to ambulate and ended up catching her right foot and ankle in between her table and chair and ended up twisting the ankle, causing severe pain in the ankle. She was unable to ambulate and her son brought her to the [facility]. She was seen by the staff. X-rays were taken and it was found that she had a trimalleolar ankle fracture of the right ankle. There were no orthopedic services available there and the patient was then sent to [facility], being accepted by Dr. Greer. The patient was seen here at [facility] and was admitted by [facility] service and we have been consulted to take care of her right ankle fracture. PAST MEDICAL HISTORY: Dementia, hypothyroidism, and Parkinson's disease. PAST SURGICAL HISTORY: Left total knee arthroplasty performed by Dr. Osborne in 2012. FAMILY AND SOCIAL HISTORY: As per admitting history and physical. ALLERGIES: NKDA. MEDICATIONS: Aspirin 81 mg p.o. daily, vitamin D 3000 international units p.o. daily, Restasis 1 drop OP b.i.d., donepezil 10 mg p.o. daily, levothyroxine 75 mcg p.o. daily, Crestor 5 mg p.o. at bedtime, acetaminophen 325 mg p.o. q. 6 hours p.r.n., Dulcolax one suppository AL q a.m. p.r.n. constipation, milk of magnesia 30 mL p.o. p.m. if no BM p.r.n. for constipation, and meclizine 25 mg p.o. t.i.d. p.r.n. for dizziness or vertigo. REVIEW OF SYSTEMS: As per admitting history and physical. PHYSICAL EXAMINATION: VITAL SIGNS: Most recent vital signs show a temperature 36.6, pulse 75, respirations 16, BP 105/64, and pulse ox 91% on room air. GENERAL: The patient is a pleasant, well-developed and well-nourished white female, who is alert and oriented to person and place. She is in no acute distress, pleasant and cooperative. EXTREMITIES: Focusing our exam on her right lower extremity, she has a very short posterior splint on the right foot and ankle. Toes are pink and warm and upon removing the Kai bandage, it is noted that the very short posterior splint is pressing into the patient's skin where she has some swelling from the fracture. There are no areas that I can assess that have skin breakdown. At that point, I removed the splint and all of her skin medially, laterally and over the heel appears benign, although she does have a reddened area over the area where the splint was pressing in onto her flush. She has no pain up the extremity to the knee. Knee is nontender on palpation as well as hip is essentially benign with range of motion and is nontender. She denies pain in the left lower extremity, but has a well-healed scar from previous left TKA. Upper extremities are essentially within normal limits and have good range of motion and are nontender at the shoulders, elbows and wrist. There are no gross motor or sensory deficits seen at this time. She denies neck pain on palpation and has good range of motion and denies thoracic or low back pain. X-rays reviewed with Dr. Rojas shows right ankle fracture that will need to be repaired. PLAN: Plan for ORIF of right ankle today by Dr. Rojas. OLIVER
[2017-04-11] MEDS: CHOLECALCIFEROL 1000 INTER.UNIT TAB PO SCH (09:00)
[2017-04-11] MEDS: DONEPEZIL HCL 5 MG TAB PO SCH (09:37)
--- NOTE | 2017-04-11 09:48 | Progress Note ---
Medicine Progress Note Date & Time of Visit: Apr 11, 2017 at 09:32. (Stephany Russell, P.A.-C.) Subjective Patient seen and examined. Resting comfortably in bed. States that she experienced 9/10 pain R ankle pain overnight that decreased to 5 /10 with pain medication. A&Ox4 this morning, denies lightheadedness, CP, SOB, nausea/vomiting, calf pain or weakness in extremities. Discussed plan for ORIF of R ankle today. (Stephany Russell, P.A.-C.) Objective Last 8 Hrs Date Time Temp Pulse Resp B/P (MAP) Pulse Ox O2 Delivery O2 Flow Rate FiO2 04/11/17 07:45 92 Room Air 04/11/17 07:45 36.8 70 16 116/60 (78) 92 Room Air Physical Exam: General Appearance: WD/WN, no apparent distress Head: normocephalic, atraumatic Eyes: normal inspection, PERRL, EOMI ENT: hearing grossly normal, pharynx normal Neck: supple, no JVD, no adenopathy Respiratory/Chest: lungs clear to auscultation. No wheezes, rales or rhonci. No respiratory distress or accessory muscle use Cardiovascular: regular rate, rhythm, no murmur, normal peripheral pulses Abdomen/GI: normal bowel sounds, soft, non-tender to palpation Extremities/Musculoskelatal: Normal inspection. No calf tenderness or pedal edema. R ankle is wrapped with new dressing by ortho. Clean and dry. Cap refill of toes intact. No skin breakdown. Neurologic/Psych: alert, normal mood/affect, oriented x 3 Skin: normal color, warm/dry Laboratory Results: Last 24 Hours Test 04/10/17 21:03 04/11/17 05:53 White Blood Count 9.82 K/uL 9.05 K/uL Red Blood Count 4.75 M/uL 4.35 M/uL Hemoglobin 14.8 g/dL 14.0 g/dL Hematocrit 44.8 % 41.1 % Mean Corpuscular Volume 94.3 fL 94.5 fL Mean Corpuscular Hemoglobin 31.2 pg 32.2 pg Mean Corpuscular Hemoglobin Concent 33.0 g/dl 34.1 g/dl RDW Standard Deviation 45.4 fL 46.3 fL RDW Coefficient of Variation 13.2 % 13.3 % Platelet Count 292 K/uL 301 K/uL Mean Platelet Volume 9.5 fL 9.6 fL Sodium Level 142 mmol/L 140 mmol/L Potassium Level 3.8 mmol/L 3.8 mmol/L Chloride Level 108 mmol/L 106 mmol/L Carbon Dioxide Level 28 mmol/L 28 mmol/L Anion Gap 6.0 mmol/L 6.0 mmol/L Blood Urea Nitrogen 17 mg/dl 19 mg/dl Creatinine 0.57 mg/dl 0.56 mg/dl Est Creatinine Clear Calc Drug Dose 84.0 ml/min 85.5 ml/min Estimated GFR () 102.9 103.5 Estimated GFR (Non- 88.8 89.3 BUN/Creatinine Ratio 30.4 34.1 Random Glucose 130 mg/dl 109 mg/dl Calcium Level 9.2 mg/dl 8.8 mg/dl Prothrombin Time 10.3 SECONDS Prothromb Time International Ratio 1.0 Activated Partial Thromboplast Time 27.1 SECONDS Partial Thromboplastin Ratio 1.0 Diagnostic Imaging: CXR: IMPRESSION: No active disease in the chest. ECG: Normal sinus rhythm (Stephany Russell, P.A.-C.) Assessment & Plan This is a 76yo F with a PMH of dementia, Parkinsom's, hyperlipidemia, hypothyroidism who presents after a mechanical fall and was found to have a R trimalleolar fracture. Right Trimalleolar Fracture: -S/p mechanical fall -Ortho on board- scheduled for a R ankle ORIF today with Dr. Rojas -Pre-op labwork, ECG and CXR all wnl. Patient is cleared to proceed to OR as an acceptable risk -Had echo 02/2016 - no valvular disease, preserved EF, grade I diastolic dysfunction -Pain is well controlled on current regimen Dementia: -Continue Aricept Hypothyroidism: -Continue Synthroid Parkinson's: -Stable, per patient HLD: - Continue statin DVT Ppx: SCDs due to possible surgical procedure Code status: Patient is a DNR as per living will copy placed on chart Dispo: STEPH to help with discharge placement. Resident of [facility]. Current Inpatient Medications: Current Inpatient Medications Medications (Trade) Dose Ordered Sig/Merary Route Start Time Stop Time Status Last Admin Dose Admin Acetaminophen (Tylenol Tab) 650 mg Q4H PRN PO 04/10/17 20:45 05/10/17 20:44 04/11/17 00:17 650 MG Ondansetron HCl (Zofran Inj) 4 mg Q6H PRN IV 04/10/17 20:45 05/10/17 20:44 Acetaminophen/ Hydrocodone Bitart (Bath 5/325 Tab) 1 tab Q6H PRN PO 04/10/17 20:45 04/24/17 20:44 04/11/17 03:40 1 TAB Morphine Sulfate (MoRPHine SULFATE INJ) 4 mg Q3H PRN IV 04/10/17 20:45 04/24/17 20:44 04/11/17 02:33 4 MG Cholecalciferol (Vitamin D Tab) 1,000 inter.unit DAILY PO 04/11/17 09:00 05/11/17 08:59 Donepezil HCl (Aricept Tab) 10 mg DAILY PO 04/11/17 09:00 05/11/17 08:59 Levothyroxine Sodium (Synthroid Tab) 75 mcg DAILYBB PO 04/11/17 06:00 05/11/17 05:59 04/11/17 05:22 75 MCG Rosuvastatin Calcium (Crestor Tab) 5 mg HS PO 04/10/17 21:00 05/10/17 20:59 04/10/17 21:31 5 MG (Stephany Russell, P.A.-C.) ADDENDUM: Saw the patient today in room 355 She's doing okay, states she was getting up from a wheelchair and got caught in the wheelchair and hurt her R ankle No significant risk factors for procedure; plan is for ORIF continue current pain regimen. (Sonia Ac, DO)
--- NOTE | 2017-04-11 11:03 | History & Physical Bridge Note ---
H&P Re-Evaluation Bridge Note: I have examined the patient, reviewed the History & Physical and in the interval since the performance of the History & Physical I have noted the following changes of clinical significance: No changes noted
[2017-04-11] MEDS ORDERED: CEFAZOLIN IV 2,000 MG/60 ML D5W IV ONE (14:31)
[2017-04-11] MEDS ORDERED: NURSING DECISION MEDICATION ORDER SCH (14:45)
[2017-04-11] MEDS ORDERED: PROPOFOL IV EMULSION 10 MG/ML 20 ML VIAL IV ONE (15:15)
[2017-04-11] MEDS ORDERED: MIDAZOLAM HCL 1 MG/ML 2ML VIAL ONE (15:15)
[2017-04-11] MEDS ORDERED: BUPIVACAINE 0.5 % 5 MG/1 ML PF 10ML VIAL ONE ×2 (15:18→15:22)
[2017-04-11] MEDS ORDERED: ATROPINE SULFATE 0.1 MG/ML 5ML SYR IV PRN (16:30)
[2017-04-11] MEDS ORDERED: PHENYLEPHRINE 100MCG/ML 5ML SYR IV PRN (16:30)
[2017-04-11] MEDS ORDERED: HYDROmorphone INJ 2 MG/ML SYR/VIAL IV PRN (16:30)
[2017-04-11] MEDS ORDERED: EpHEDrine SULFATE INJ 50 MG/ML AMP IV PRN (16:30)
[2017-04-11] MEDS ORDERED: ONDANSETRON INJ 2 MG/ML 2 ML VIAL IV PRN (16:30)
--- NOTE | 2017-04-11 18:01 | DIAGNOSTIC IMAGING REPORT ---
RIGHT ANKLE 2 VIEWS CLINICAL HISTORY: ORIF RT Right TECHNIQUE: Image intensifier COMPARISON STUDY: None FINDINGS: Anatomic alignment post bimalleolar open reduction internal fixation. IMPRESSION: Image intensifier utilized for open reduction internal fixation of the right ankle. The above report was generated using voice recognition software. It may contain grammatical, syntax or spelling errors. Electronically signed by: Castro Alva M.D. 04/11/2017 6:00 PM Dictated Date/Time: 04/11/2017 5:59 PM
[2017-04-11] MEDS ORDERED: BISACODYL 10 MG SUPP PR PRN (18:15)
[2017-04-11] MEDS ORDERED: HYDROCODONE/ACETAMOPHEN 5/325MG TAB PO PRN (18:15)
[2017-04-11] MEDS ORDERED: MAGNESIUM HYDROXIDE SUSP 30 ML UDC PO PRN (18:15)
[2017-04-11] MEDS ORDERED: SOD PHOSPHATE/SOD BIPHOSPHATE ENEMA 132 ML BTL PR PRN (18:15)
[2017-04-11] MEDS ORDERED: OXYCODONE/ACETAMINOPHEN 5-325 TAB PO PRN (18:15)
[2017-04-11] MEDS ORDERED: MoRPHine SULFATE 2 MG/ML CARP IV PRN (18:30)
--- NOTE | 2017-04-11 18:34 | [facility] Operative Report ---
Operative Report Operative Date Apr 11, 2017. Pre-Operative Diagnosis RIGHT TRIMALLEOLAR FRACTURE Post-Operative Diagnosis RIGHT TRIMALLEOLAR FRACTURE Procedure(s) Performed Right Open Reduction Internal Fixation Ankle Surgeon Dr Jace Rojas [employer] Manager Surgeon(s) none Estimated Blood Loss 5ML Findings Displaced bimalleolar fracture right ankle Specimens none per surgeon Complication(s) None Disposition Recovery Room / PACU Indications Placed bimalleolar fracture right ankle Description of Procedure After proper prepping and draping the right lower extremity fluoroscopic guidance was used distal fibular incision laterally was made the fibula was reduced anatomically with a been lateral planes was subsequently fixed utilizing a 7 hole third tubular plate under anatomic position of was removed sterile saline solution the medial malleolus incision was made under fluoroscopic guidance 24.0 x 50 mm cannulated screws were used to fix the medial malleolar fragment anatomic position both wounds were irrigated with composite sterile saline solution after thorough fluoroscopic guidance and evaluation of the fracture both AP and lateral planes of the subcutaneous socially closed with 2-0 Vicryl and 3-0 Vicryl scheduled for nylon a sterile compressive dressing placed was a posterior splint the patient USUAL taken to recovery in stable condition of report dictated by Bob. Juan Antonio SHEEHAN was necessary for prepping draping retraction wound closure defect subcutaneous skin was Nesser for the case I attest to the content of the Intraoperative Record and any orders documented therein. Any exceptions are noted below.
--- NOTE | 2017-04-11 18:53 | Anesthesiology Progress Note ---
Anesthesia Post Op Note Date & Time Apr 11, 2017 at 18:53 Vital Signs Pain Intensity: 0 Vital Signs Past 12 Hours Date Time Temp Pulse Resp B/P (MAP) Pulse Ox O2 Delivery O2 Flow Rate FiO2 04/11/17 18:50 37.2 84 18 116/61 98 Nasal Cannula 2 04/11/17 18:40 37.2 77 18 117/68 98 Nasal Cannula 2 04/11/17 18:30 77 18 129/64 97 Nasal Cannula 2 04/11/17 18:20 72 18 120/62 100 Oxymask 6 04/11/17 18:11 37.2 78 18 106/65 100 Oxymask 6 04/11/17 07:50 Room Air 04/11/17 07:45 92 Room Air 04/11/17 07:45 36.8 70 16 116/60 (78) 92 Room Air Notes Mental Status: alert / awake / arousable, participated in evaluation Pt Amnestic to Procedure: Yes Nausea / Vomiting: adequately controlled Pain: adequately controlled Airway Patency, RR, SpO2: stable & adequate BP & HR: stable & adequate Hydration State: stable & adequate Anesthetic Complications: no major complications apparent
[2017-04-11] MEDS: POTASSIUM CHLORIDE INJ 10 MEQ in SODIUM CHLORIDE 0.9% 1000ML 1,000 ML IV SCH (20:15)
[2017-04-11] MEDS: ROSUVASTATIN CALCIUM 10 MG TAB PO SCH ×2 (20:17→21:30)
[2017-04-11] MEDS: SENNA 8.6 MG TAB PO SCH (20:17)
[2017-04-11] MEDS: DOCUSATE SODIUM 100 MG CAP PO SCH (20:17)
[2017-04-11] MEDS: CEFAZOLIN IV 1,000 MG in DEXTROSE 5% 50ML 50 ML IV SCH (21:31)
[2017-04-12] MEDS: OXYCODONE HCL IR 5 MG TAB (IMMEDIATE RELEASE) PO PRN ×2 (01:08→17:08)
[2017-04-12 03:35] VITALS: BP 118/84; PULSE 97; TEMP 36.8; O2SAT 91
[2017-04-12] MEDS: POTASSIUM CHLORIDE INJ 10 MEQ in SODIUM CHLORIDE 0.9% 1000ML 1,000 ML IV SCH ×2 (04:58→15:58)
[2017-04-12] MEDS: CEFAZOLIN IV 1,000 MG in DEXTROSE 5% 50ML 50 ML IV SCH (05:17)
[2017-04-12] MEDS: LEVOTHYROXINE 75 MCG TAB PO SCH (05:17)
[2017-04-12] MEDS ORDERED: CEFAZOLIN 1000MG/55 ML D5W IV SCH (06:00)
[2017-04-12 07:50] VITALS: BP 132/54; PULSE 90; TEMP 37.1; O2SAT 92
[2017-04-12 08:03] LABS: MEAN CELL VOLUME 93.5 fL (80-100); MEAN CORPUSCULAR HEMOGLOBIN 32.1 pg (25-34); MEAN CORPUSCULAR HGB CONC 34.4 g/dl (32-36); MEAN PLATELET VOLUME 9.5 fL (7.4-10.4); PLATELET COUNT 259 K/uL (130-400); RED BLOOD COUNT 4.17 M/uL (4.2-5.4); WHITE BLOOD COUNT 9.93 K/uL (4.8-10.8)
[2017-04-12 08:09] VITALS: O2SAT 92
[2017-04-12 08:30] LABS: BUN/CREATININE RATIO 22.8 (10-20); CALCIUM 8.7 mg/dl (8.5-10.1); CREATININE 0.57 mg/dl (0.60-1.20); POTASSIUM 3.9 mmol/L (3.5-5.1)
--- NOTE | 2017-04-12 08:39 | Orthopedic Progress Note ---
Orthopedic Progress Note Date of Service Apr 12, 2017. Subjective Post OP Day: 1 (s/p right ankle ORIF) Reports: feeling well, pain controlled w PO medications, Denies: complaints, chest pain, SOB, nausea / vomiting, light headedness, calf pain Objective N/V intact, splint C/D/I, dressing C/D/I, A&O x3, toes mobile Date Time Temp Pulse Resp B/P (MAP) Pulse Ox O2 Delivery O2 Flow Rate FiO2 04/12/17 08:09 92 Room Air 04/12/17 07:50 37.1 90 20 132/54 (80) 92 Room Air 04/12/17 03:35 36.8 97 15 118/84 (95) 91 Room Air 04/12/17 00:35 Room Air 04/11/17 22:59 36.8 94 18 115/49 (71) 95 Room Air 04/11/17 22:10 37.1 91 18 120/63 (82) 94 Room Air 04/11/17 21:10 36.7 98 16 130/77 (94) 94 Nasal Cannula 2.0 04/11/17 20:10 37.4 103 15 117/63 (81) 97 Nasal Cannula 2.0 04/11/17 19:47 36.4 90 15 139/80 (99) 96 Nasal Cannula 2.0 04/11/17 19:30 97 Nasal Cannula 2.0 04/11/17 19:30 97 Nasal Cannula 2.0 04/11/17 19:10 36.8 86 18 130/73 (92) 96 Nasal Cannula 2.0 04/11/17 18:50 37.2 84 18 116/61 98 Nasal Cannula 2 04/11/17 18:40 37.2 77 18 117/68 98 Nasal Cannula 2 04/11/17 18:30 77 18 129/64 97 Nasal Cannula 2 04/11/17 18:20 72 18 120/62 100 Oxymask 6 04/11/17 18:11 37.2 78 18 106/65 100 Oxymask 6 Laboratory Results 24 Hours: Test 04/12/17 07:40 Hematocrit 39.0 % Hemoglobin 13.4 g/dL Assessment & Plan Assessment: POD #1 s/p RIGHT TRIMALLEOLAR FRACTURE ORIF -patient should remain strict NWB on her right leg for 6 weeks -leave splint in place and intact until her first follow up visit and with remove sutures and cast at that time -orthopaedically stable, splint comfortable and intact, NVDI. will sign off at this time, patient to contact the office to schedule appointment for 12-14 days for suture removal and repeat xrays.
--- NOTE | 2017-04-12 08:48 | Consultant Recommendations ---
Lens Grinder Rough Recommendations Date of Service Apr 12, 2017. Lens Grinder Rough Recommendations ACTIVITY RECOMMENDATIONS: * You should remain strict non-weightbearing on your right leg for at least 6 weeks. SPECIAL CARE INSTRUCTIONS: * Some drainage onto the dressing is normal and is no cause for alarm. * Some swelling is natural especially after walking. When resting, keep your foot elevated above the level of your heart. * Call the doctor's office at if you notice increased drainage, fever over 101 degrees F. or severe constant pain. BANDAGE: * Leave splint in place unless otherwise directed. * Keep bandage/cast dry at all times. FOLLOW UP VISIT: If appointment is not already scheduled: Please call [facility] [place] to make a follow-up appointment after your surgery at , APPOINTMENT HAS BEEN MADE FOR YOU ON @ 1:00, IF THIS DOES NOT WORK PLEASE CALL TO RESCHEDULE.
[2017-04-12] MEDS: CHOLECALCIFEROL 1000 INTER.UNIT TAB PO SCH (09:44)
[2017-04-12] MEDS: ASPIRIN 325 MG ECTAB PO SCH (09:44)
[2017-04-12] MEDS: DONEPEZIL HCL 5 MG TAB PO SCH (09:44)
[2017-04-12] MEDS: DOCUSATE SODIUM 100 MG CAP PO SCH ×2 (09:44→21:33)
--- NOTE | 2017-04-12 11:18 | Progress Note ---
Medicine Progress Note Date & Time of Visit: Apr 12, 2017 at 11:12. (Stephany Russell, P.A.-C.) Subjective Patient seen and examined. Doing well post operatively. States that pain is well controlled. Rates R ankle pain a 3/10. Denies lightheadedness, CP, SOB, n/v, weakness or calf pain. States that she feels ready to return to [facility] for rehab. (Stephany Russell, P.A.-C.) Objective Last 8 Hrs Date Time Temp Pulse Resp B/P (MAP) Pulse Ox O2 Delivery O2 Flow Rate FiO2 04/12/17 08:09 92 Room Air 04/12/17 07:50 37.1 90 20 132/54 (80) 92 Room Air 04/12/17 03:35 36.8 97 15 118/84 (95) 91 Room Air Physical Exam: General Appearance: WD/WN, no apparent distress Head: normocephalic, atraumatic Eyes: normal inspection, PERRL, EOMI ENT: hearing grossly normal, pharynx normal Neck: supple, no JVD, no adenopathy Respiratory/Chest: lungs clear to auscultation. No wheezes, rales or rhonci. No respiratory distress or accessory muscle use Cardiovascular: regular rate, rhythm, no murmur, normal peripheral pulses Abdomen/GI: normal bowel sounds, soft, non-tender to palpation Extremities/Musculoskelatal: Normal inspection. No calf tenderness or pedal edema. R ankle is wrapped with new dressing by ortho. Clean and dry. Cap refill of toes intact. No skin breakdown. Neurologic/Psych: alert, normal mood/affect, oriented x 3 Skin: normal color, warm/dry Laboratory Results: Last 24 Hours Test 04/12/17 07:40 White Blood Count 9.93 K/uL Red Blood Count 4.17 M/uL Hemoglobin 13.4 g/dL Hematocrit 39.0 % Mean Corpuscular Volume 93.5 fL Mean Corpuscular Hemoglobin 32.1 pg Mean Corpuscular Hemoglobin Concent 34.4 g/dl RDW Standard Deviation 46.0 fL RDW Coefficient of Variation 13.4 % Platelet Count 259 K/uL Mean Platelet Volume 9.5 fL Sodium Level 139 mmol/L Potassium Level 3.9 mmol/L Chloride Level 107 mmol/L Carbon Dioxide Level 28 mmol/L Anion Gap 4.0 mmol/L Blood Urea Nitrogen 13 mg/dl Creatinine 0.57 mg/dl Est Creatinine Clear Calc Drug Dose 84.0 ml/min Estimated GFR () 102.9 Estimated GFR (Non- 88.8 BUN/Creatinine Ratio 22.8 Random Glucose 119 mg/dl Calcium Level 8.7 mg/dl (Stephany Russell, P.A.-C.) Assessment & Plan This is a 76yo F with a PMH of dementia, Parkinsom's, hyperlipidemia, hypothyroidism who presents after a mechanical fall and was found to have a R trimalleolar fracture. Is now POD#1 s/p R ankle ORIF by Dr. Rojas. Right Trimalleolar Fracture: -S/p mechanical fall -POD#1 s/p R Trimalleolar fracture PRIF with Dr. Rojas -Pain is well controlled on current regimen. No other complaints. -Per ortho, -Remain strict NWB on her right leg for 6 weeks -Leave splint in place and intact until follow up visit. Will remove sutures and cast at that time -Patient to contact the office to schedule appointment for 12-14 days for suture removal and repeat xrays Dementia: -Continue Aricept Hypothyroidism: -Continue Synthroid Parkinson's: -Stable, per patient HLD: - Continue statin DVT Ppx: SCDs due to possible surgical procedure Code status: Patient is a DNR as per living will copy placed on chart Dispo: Plan to return to [facility] today for rehab. Current Inpatient Medications: Current Inpatient Medications Medications (Trade) Dose Ordered Sig/Merary Route Start Time Stop Time Status Last Admin Dose Admin Acetaminophen (Tylenol Tab) 650 mg Q4H PRN PO 04/10/17 20:45 05/10/17 20:44 04/11/17 00:17 650 MG Ondansetron HCl (Zofran Inj) 4 mg Q6H PRN IV 04/10/17 20:45 05/10/17 20:44 Cholecalciferol (Vitamin D Tab) 1,000 inter.unit DAILY PO 04/11/17 09:00 05/11/17 08:59 04/12/17 09:44 1,000 INTER.UNIT Donepezil HCl (Aricept Tab) 10 mg DAILY PO 04/11/17 09:00 05/11/17 08:59 04/12/17 09:44 10 MG Levothyroxine Sodium (Synthroid Tab) 75 mcg DAILYBB PO 04/11/17 06:00 05/11/17 05:59 04/12/17 05:17 75 MCG Rosuvastatin Calcium (Crestor Tab) 5 mg HS PO 04/10/17 21:00 05/10/17 20:59 04/11/17 21:30 5 MG Potassium Chloride 10 meq/ Sodium Chloride 1,005 ml @ 100 mls/hr Q10H3M IV 04/11/17 19:00 05/11/17 18:00 04/12/17 04:58 100 MLS/HR Oxycodone HCl (Roxicodone Immediate Rel Tab) 1-2 TABS FOR PAIN 1 TABLET ... Q4H PRN PO 04/11/17 18:15 04/25/17 18:14 04/12/17 01:08 10 MG Magnesium Hydroxide (Milk Of Magnesia Susp) 30 ml Q6H PRN PO 04/11/17 18:15 05/11/17 18:14 Bisacodyl (Dulcolax Supp) [address] 04/11/17 18:15 05/11/17 18:14 Sodium Biphosphate/ Sodium Phosphate (Fleet Enema) [address] 04/11/17 18:15 05/11/17 18:14 Senna (Senokot Tab) 17.2 mg HS PO 04/11/17 21:00 05/11/17 20:59 04/11/17 20:17 17.2 MG Docusate Sodium (coLACE CAP) 100 mg BID PO 04/11/17 21:00 05/11/17 20:59 04/12/17 09:44 100 MG Aspirin (Ecotrin Tab) 325 mg DAILY PO 04/12/17 09:00 05/12/17 08:59 04/12/17 09:44 325 MG Morphine Sulfate (MoRPHine SULFATE INJ) 2 mg Q4HWA PRN IV 04/11/17 18:30 04/25/17 18:29 (Stephany Russell, P.A.-C.) Saw/examined the patient in room 355 She is doing well today; no complaints to note; pain is controlled, she feels fine, eager to get out of the hospital Pt. is post-op day #1 for an ORIF of R ankle trimalleolar fracture; strict non- weight bearing status on R LE for 6 weeks PT/OT ordered discharge planning back to [facility] when okay with case management (Sonia Ac, DO)
[2017-04-12] MEDS ORDERED: RXC5 PO (11:23)
--- NOTE | 2017-04-12 11:25 | Discharge Instructions ---
Discharge Instructions Date of Service Apr 12, 2017. Admission Reason for Admission: Right Trimalleolar Fracture Discharge Discharge Diagnosis / Problem: R Trimalleolar Fracture s/p ORIF Discharge Goals Goal(s): Decrease discomfort, Improve function, Increase independence Activity Recommendations Activity Limitations: per Instructions/Follow-up section . Instructions / Follow-Up Instructions / Follow-Up You fractured your R ankle. You underwent surgical repair yesterday (04/11/17) by Dr. Rojas. Please follow the instructions provided by orthopedics below. Your follow up appointment with [facility] is scheduled for 04/25/17 @ 1:00. You developed a rash on your L forearm and arm. Please wash area with soap and water, avoid harsh chemicals, and apply hydrocortisone cream to area twice a day. Current Hospital Diet Patient's current hospital diet: AHA Diet (Heart Healthy) Discharge Diet Recommended Diet: AHA Diet (Heart Healthy) Procedures Procedures Performed: Right Open Reduction Internal Fixation Ankle Pending Studies Studies pending at discharge: no Medical Emergencies . Who to Call and When: Medical Emergencies: If at any time you feel your situation is an emergency, please call 911 immediately. . Non-Emergent Contact Non-Emergency issues call your: Primary Care Provider Past History Medical & Surgical History: (1) Status post ORIF of fracture of ankle (2) Parkinson disease (3) Dementia (4) Hypothyroidism (5) Contact dermatitis . "Provider Documentation" section prepared by Stephany Russell. . Telephone Surveyor Recommendations Telephone Surveyor Recommendations: ACTIVITY RECOMMENDATIONS: * You should remain strict non-weightbearing on your right leg for at least 6 weeks. SPECIAL CARE INSTRUCTIONS: * Some drainage onto the dressing is normal and is no cause for alarm. * Some swelling is natural especially after walking. When resting, keep your foot elevated above the level of your heart. * Call the doctor's office at if you notice increased drainage, fever over 101 degrees F. or severe constant pain. BANDAGE: * Leave splint in place unless otherwise directed. * Keep bandage/cast dry at all times. FOLLOW UP VISIT: If appointment is not already scheduled: Please call [facility] [place] to make a follow-up appointment after your surgery at , APPOINTMENT HAS BEEN MADE FOR YOU ON @ 1:00, IF THIS DOES NOT WORK PLEASE CALL TO RESCHEDULE. VTE Core Measure Inpt VTE Proph given/why not?: SCD's [place] Drug Monitoring Program Search Results: patient reviewed within database, no issues identified
[2017-04-12 11:31] VITALS: BP 120/54; PULSE 80; TEMP 36.8; O2SAT 95
[2017-04-12 15:17] VITALS: BP 134/74; PULSE 96; TEMP 37.1; O2SAT 93
[2017-04-12] MEDS: SENNA 8.6 MG TAB PO SCH (21:33)
[2017-04-12] MEDS: ROSUVASTATIN CALCIUM 10 MG TAB PO SCH (21:33)
[2017-04-12 23:30] VITALS: BP 113/67; PULSE 82; TEMP 36.7; O2SAT 93
[2017-04-13] MEDS: POTASSIUM CHLORIDE INJ 10 MEQ in SODIUM CHLORIDE 0.9% 1000ML 1,000 ML IV SCH ×2 (01:09→11:12)
[2017-04-13] MEDS: LEVOTHYROXINE 75 MCG TAB PO SCH (06:18)
[2017-04-13 07:25] VITALS: BP 128/60; PULSE 80; TEMP 36.7; O2SAT 94
[2017-04-13 07:28] VITALS: O2SAT 94
[2017-04-13] MEDS: DOCUSATE SODIUM 100 MG CAP PO SCH (08:37)
[2017-04-13] MEDS: DONEPEZIL HCL 5 MG TAB PO SCH (08:37)
[2017-04-13] MEDS: ASPIRIN 325 MG ECTAB PO SCH (08:38)
[2017-04-13] MEDS: CHOLECALCIFEROL 1000 INTER.UNIT TAB PO SCH (08:38)
[2017-04-13] MEDS ORDERED: HYDROCORTISONE 1% CR 30 GM TUBE EXT PRN (09:15)
[2017-04-13] MEDS ORDERED: BND25X PO (09:20)
[2017-04-13] MEDS ORDERED: HYDR1OIN EXT (09:20)
--- NOTE | 2017-04-13 09:38 | Progress Note ---
Medicine Progress Note Date & Time of Visit: Apr 13, 2017 at 09:33. (Stephany Russell, P.A.-C.) Subjective Patient seen and examined. Doing well post operatively. States that pain is well controlled on current regimen. Denies lightheadedness, CP, SOB, n/v, weakness or calf pain. Does have a new rash since yesterday on L forearm and arm that itches. States that she feels ready to return to [facility] for rehab. (Stephany Russell, P.A.-C.) Objective Last 8 Hrs Date Time Temp Pulse Resp B/P (MAP) Pulse Ox O2 Delivery O2 Flow Rate FiO2 04/13/17 07:40 Room Air 04/13/17 07:28 94 Room Air 04/13/17 07:25 36.7 80 19 128/60 (82) 94 Room Air Physical Exam: General Appearance: WD/WN, no apparent distress Head: normocephalic, atraumatic Eyes: normal inspection, PERRL, EOMI ENT: hearing grossly normal, pharynx normal Neck: supple, no JVD, no adenopathy Respiratory/Chest: lungs clear to auscultation. No wheezes, rales or rhonci. No respiratory distress or accessory muscle use Cardiovascular: regular rate, rhythm, no murmur, normal peripheral pulses Abdomen/GI: normal bowel sounds, soft, non-tender to palpation Extremities/Musculoskelatal: Normal inspection. No calf tenderness or pedal edema. R ankle is wrapped with new dressing by ortho. Clean and dry. Cap refill of toes intact. No skin breakdown. Neurologic/Psych: alert, normal mood/affect, oriented x 3 Skin: normal color, warm/dry. + Erythematous, slightly raised skin on inner L forearm/arm. No weeping or discharge. (Stephany Russell, P.A.-C.) Assessment & Plan This is a 76yo F with a PMH of dementia, Parkinsom's, hyperlipidemia, hypothyroidism who presents after a mechanical fall and was found to have a R trimalleolar fracture. Is now POD#2 s/p R ankle ORIF by Dr. Rojas. Right Trimalleolar Fracture: -S/p mechanical fall -POD#2 s/p R Trimalleolar fracture PRIF with Dr. Rojas -Pain is well controlled on current regimen. No other complaints. -Per ortho, -Remain strict NWB on her right leg for 6 weeks -Leave splint in place and intact until follow up visit. Will remove sutures and cast at that time -Patient to contact the office to schedule appointment for 12-14 days for suture removal and repeat xrays Contact dermatitis on L forearm/arm: -Rash present on inner arm, where it makes contact with bedding, gown -Washing with soap and water has improved appearance -Avoid alcohol based, wipes, offending agents -Ordered hydrocortisone cream to apply to affected area BID -Benadryl PRN for itching Dementia: -Continue Aricept Hypothyroidism: -Continue Synthroid Parkinson's: -Stable, per patient HLD: - Continue statin DVT Ppx: SCDs Code status: Patient is a DNR as per living will copy placed on chart Dispo: Plan to return to [facility] today for rehab. Current Inpatient Medications: Current Inpatient Medications Medications (Trade) Dose Ordered Sig/Merary Route Start Time Stop Time Status Last Admin Dose Admin Acetaminophen (Tylenol Tab) 650 mg Q4H PRN PO 04/10/17 20:45 05/10/17 20:44 04/11/17 00:17 650 MG Ondansetron HCl (Zofran Inj) 4 mg Q6H PRN IV 04/10/17 20:45 05/10/17 20:44 Cholecalciferol (Vitamin D Tab) 1,000 inter.unit DAILY PO 04/11/17 09:00 05/11/17 08:59 04/13/17 08:38 1,000 INTER.UNIT Donepezil HCl (Aricept Tab) 10 mg DAILY PO 04/11/17 09:00 05/11/17 08:59 04/13/17 08:37 10 MG Levothyroxine Sodium (Synthroid Tab) 75 mcg DAILYBB PO 04/11/17 06:00 05/11/17 05:59 04/13/17 06:18 75 MCG Rosuvastatin Calcium (Crestor Tab) 5 mg HS PO 04/10/17 21:00 05/10/17 20:59 04/12/17 21:33 5 MG Potassium Chloride 10 meq/ Sodium Chloride 1,005 ml @ 100 mls/hr Q10H3M IV 04/11/17 19:00 05/11/17 18:00 04/13/17 01:09 100 MLS/HR Oxycodone HCl (Roxicodone Immediate Rel Tab) 1-2 TABS FOR PAIN 1 TABLET ... Q4H PRN PO 04/11/17 18:15 04/25/17 18:14 04/12/17 17:08 10 MG Magnesium Hydroxide (Milk Of Magnesia Susp) 30 ml Q6H PRN PO 04/11/17 18:15 05/11/17 18:14 Bisacodyl (Dulcolax Supp) 10 mg DAILY PRN [place] 04/11/17 18:15 05/11/17 18:14 Sodium Biphosphate/ Sodium Phosphate (Fleet Enema) 132 ml DAILY PRN [place] 04/11/17 18:15 05/11/17 18:14 Senna (Senokot Tab) 17.2 mg HS PO 04/11/17 21:00 05/11/17 20:59 04/12/17 21:33 17.2 MG Docusate Sodium (coLACE CAP) 100 mg BID PO 04/11/17 21:00 05/11/17 20:59 04/13/17 08:37 100 MG Aspirin (Ecotrin Tab) 325 mg DAILY PO 04/12/17 09:00 05/12/17 08:59 04/13/17 08:38 325 MG Morphine Sulfate (MoRPHine SULFATE INJ) 2 mg Q4HWA PRN IV 04/11/17 18:30 04/25/17 18:29 Diphenhydramine HCl (Benadryl Cap) 25 mg BID PRN PO 04/12/17 17:30 05/12/17 17:29 04/13/17 09:10 25 MG Hydrocortisone (Hydrocortisone 1% Crm) 1 appln BID PRN EXT 04/13/17 09:15 05/13/17 09:14 (Stephany Russell, P.A.-C.) Patient is doing well today; no problems/issues to note Pain is controlled with medications Plan is for d/c to [facility] today Strict non-weightbearing status on the R for 6 weeks, outpatient ortho follow- up for cast removal/suture removal Patient does have contact dermatitis on the inner arms and back - will d/c with hydrocortisone cream and Benadryl (Sonia Ac, DO)
--- NOTE | 2017-04-13 09:40 | Discharge Summary ---
Discharge Summary Date of Service Apr 13, 2017. Discharge Summary Admission Date: Apr 10, 2017 at 20:14 Discharge Date: Apr 13, 2017 Discharge Disposition: residential facility Principal Diagnosis: R Trimalleolar Fracture s/p ORIF Secondary Diagnoses/Problems: Contact dermatitis on L forearm/arm, Dementia, Hypothyroidism, Parkinson's, HLD Procedures: R Trimalleolar Fracture s/p ORIF with Dr Rojas on 04/11/17. Medication Reconciliation New Medications: Diphenhydramine HCl (Diphenhydramine HCl) 25 Mg Cap 25 MG PO BID PRN for itching for 7 Days, #14 CAP Hydrocortisone (Topical) (Hydrocortisone) 1 % Oin 1 APPLN EXT BID PRN for Itching for 7 Days Oxycodone HCl (Oxycodone HCl) 5 Mg Tab 5-10 MG PO Q4H PRN for Pain for 4 Days, #24 TAB 0 Refills Continued Medications: Acetaminophen (Tylenol) 325 Mg Tab 325 MG PO Q6H PRN for Pain, TAB Aspirin Enteric Coated (Ecotrin Or Generic) 81 Mg Tab 81 MG PO DAILY, TAB Bisacodyl (Dulcolax) 10 Mg Sup 1 SUPP OH 4th AM if no BM PRN for Constipation, SUP Cholecalciferol (Vitamin D3) 1,000 Unit Tab 1000 INTER.UNIT PO DAILY for 90 Days, TAB 3 Refills Cyclosporine (Ophth) (Restasis) 0.05 % Emu 1 DROPS OP BID for 30 Days, #60 VIAL 3 Refills Donepezil Hydrochloride (Donepezil Hcl) 5 Mg Tab 10 MG PO DAILY for 90 Days, #180 TAB 3 Refills Levothyroxine Sodium (Levothyroxine Sodium) 75 Mcg Tab 75 MCG PO DAILY for 90 Days, #90 TAB 3 Refills Magnesium Hydroxide (Milk Of Magnesia) 30 Ml Susp 30 ML PO 3rd PM if no BM PRN for Constipation, ML Meclizine Hcl (Meclizine Hcl) 25 Mg Tab 25 MG PO TID PRN for Dizziness or Vertigo for 10 Days, #30 TAB Rosuvastatin Calcium (Crestor) 5 Mg Tab 5 MG PO HS, TAB Admission Information HPI (per Admitting provider): 76 year old female who was transferred from [facility] for evaluation of a right trimalleolar fracture. Patient is currently at [facility]. She reports that she was trying to get out of her wheelchair by herself when she tripped over the leg. She reports immediate right ankle pain. She was evaluated at [facility] and was found to have a displaced right trimalleolar fracture. It was reduced in the ED. Case was discussed with Dr. Greer who recommended transfer to [facility] under the medicine service. Patient reports she has been feeling well recently. She denies chest pain and shortness of breath. No lightheadedness, dizziness, diaphoresis, or syncope. She reports occasional mild nausea but denies abdominal pain, vomiting, or diarrhea. No urinary symptoms. At the time of my exam, patient is resting in bed no acute distress. Physical Exam (per Admitting): General Appearance: no apparent distress Head: normocephalic Eyes: normal inspection ENT: hearing grossly normal Neck: supple, no JVD Respiratory/Chest: lungs clear, normal breath sounds, no respiratory distress Cardiovascular: regular rate, rhythm, no edema, normal peripheral pulses Abdomen/GI: normal bowel sounds, non tender, soft Extremities/Musculoskelatal: + pertinent finding (right ankle wrapped, mild RLE edema noted, CSM checks intact) Neurologic/Psych: no motor/sensory deficits, alert, normal mood/affect, oriented x 3, + pertinent finding (forgetful, poor insight) Skin: normal color, warm/dry Hospital Course This is a 76yo F with a PMH of dementia, Parkinsom's, hyperlipidemia, hypothyroidism who presents after a mechanical fall and was found to have a R trimalleolar fracture. Is now POD#2 s/p R ankle ORIF by Dr. Rojas. Right Trimalleolar Fracture: -S/p mechanical fall -POD#2 s/p R Trimalleolar fracture ORIF with Dr. Rojas -Pain is well controlled on current regimen. No other complaints. -Per ortho, -Remain strict NWB on her right leg for 6 weeks -Leave splint in place and intact until follow up visit. Will remove sutures and cast at that time -Patient to contact the office to schedule appointment for 12-14 days for suture removal and repeat xrays Contact dermatitis on L forearm/arm: -Rash present on inner arm, where it makes contact with bedding, gown -Washing with soap and water has improved appearance -Avoid alcohol based, wipes, offending agents -Ordered hydrocortisone cream to apply to affected area BID -Benadryl PRN for itching Dementia: -Continue Aricept Hypothyroidism: -Continue Synthroid Parkinson's: -Stable, per patient HLD: - Continue statin Total time spent on discharge = 35 This includes examination of the patient, discharge planning, medication reconciliation, and communication with other providers. Discharge Instructions Discharge Instructions Date of Service Apr 12, 2017. Admission Reason for Admission: Right Trimalleolar Fracture Discharge Discharge Diagnosis / Problem: R Trimalleolar Fracture s/p ORIF Discharge Goals Goal(s): Decrease discomfort, Improve function, Increase independence Activity Recommendations Activity Limitations: per Instructions/Follow-up section . Instructions / Follow-Up Instructions / Follow-Up You fractured your R ankle. You underwent surgical repair yesterday (04/11/17) by Dr. Rojas. Please follow the instructions provided by orthopedics below. Your follow up appointment with [facility] is scheduled for 04/25/17 @ 1:00. You developed a rash on your L forearm and arm. Please wash area with soap and water, avoid harsh chemicals, and apply hydrocortisone cream to area twice a day. Current Hospital Diet Patient's current hospital diet: AHA Diet (Heart Healthy) Discharge Diet Recommended Diet: AHA Diet (Heart Healthy) Procedures Procedures Performed: Right Open Reduction Internal Fixation Ankle Pending Studies Studies pending at discharge: no Medical Emergencies . Who to Call and When: Medical Emergencies: If at any time you feel your situation is an emergency, please call 911 immediately. . Non-Emergent Contact Non-Emergency issues call your: Primary Care Provider Past History Medical & Surgical History: (1) Status post ORIF of fracture of ankle (2) Parkinson disease (3) Dementia (4) Hypothyroidism (5) Contact dermatitis . "Provider Documentation" section prepared by Stephany Russell. . Production Troubleshooter Recommendations Production Troubleshooter Recommendations: ACTIVITY RECOMMENDATIONS: * You should remain strict non-weightbearing on your right leg for at least 6 weeks. SPECIAL CARE INSTRUCTIONS: * Some drainage onto the dressing is normal and is no cause for alarm. * Some swelling is natural especially after walking. When resting, keep your foot elevated above the level of your heart. * Call the doctor's office at if you notice increased drainage, fever over 101 degrees F. or severe constant pain. BANDAGE: * Leave splint in place unless otherwise directed. * Keep bandage/cast dry at all times. FOLLOW UP VISIT: If appointment is not already scheduled: Please call [facility] to make a follow-up appointment after your surgery at , APPOINTMENT HAS BEEN MADE FOR YOU ON @ 1:00, IF THIS DOES NOT WORK PLEASE CALL TO RESCHEDULE. VTE Core Measure Inpt VTE Proph given/why not?: SCD's [place] Drug Monitoring Program Search Results: patient reviewed within database, no issues identified
[2017-04-13 13:31] VITALS: BP 128/60; PULSE 80; TEMP 36.7; O2SAT 94
== END 2017-04-13 14:15 | DRG 494 ==
LOC: C.MSW 20:14
PROVIDERS: ADMIT Internal Medicine; ATTEND Family Medicine
PROC: 0QSJ04Z Reposition Right Fibula with Internal Fixation Device, Open Approach (ICD-10-PCS; principal; 2017-04-11 14:30)
PROC: 0QSG04Z Reposition Right Tibia with Internal Fixation Device, Open Approach (ICD-10-PCS; principal; 2017-04-11 14:30)
DX: S82.851A Displaced trimalleolar fracture of right lower leg, initial encounter for closed fracture (principal); W01.0XXA Fall on same level from slipping, tripping and stumbling without subsequent striking against object, initial encounter; Y92.129 Unspecified place in nursing home as the place of occurrence of the external cause; L25.8 Unspecified contact dermatitis due to other agents; G20 Parkinson's disease; F02.80 Dementia in other diseases classified elsewhere, unspecified severity, without behavioral disturbance, psychotic disturbance, mood disturbance, and anxiety; E03.9 Hypothyroidism, unspecified; E78.5 Hyperlipidemia, unspecified; I51.9 Heart disease, unspecified; Z66 Do not resuscitate; Z96.652 Presence of left artificial knee joint; Z79.82 Long term (current) use of aspirin; Z79.899 Other long term (current) drug therapy